=== PATIENT | female | born 1940 | race Caucasian/White ===

== ENCOUNTER 2017-10-21 14:05 | Inpatient (IN) | payer OTHER, MEDICARE ==
[2017-10-21] VITALS (8 sets, daily range): BP systolic 112–152; BP diastolic 66–96; PULSE 87–104; RESP 12–19; TEMP 97.7–98.2; O2SAT 90–98
[~2017-10-21] VITALS: Ht 152.4 cm; Wt 109.1 kg
[~2017-10-21 14:05] MED LIST: APIX2.5T PO; DILTCD180 PO; DOCU1CAP39 PO; DUONI NEB; FLUT50SP NASAL; FURO1TAB93 PO; KCL20 PO; LORTA5 PO; NEBUMIS6 INH; SENN187 PO; Z.0.OXYGEN INH
[2017-10-21] MEDS ORDERED: SODIUM CHLORIDE 0.9% FLUSH 10 ML FLUSH IVF PRN (14:30)
[2017-10-21] MEDS ORDERED: HYDROmorphone HCL PF 2 MG/ML VIAL IV PUSH ONE (14:30)
--- NOTE | 2017-10-21 14:34 | PD ---
HPI Chief Complaint: Fall Time Seen by Provider: 14:17 Travel History International Travel<30 days: No Contact w/Intl Traveler<30days: No Traveled to known affect area: No History of Present Illness HPI Patient is a 77-year-old female presents emergency department for evaluation of left hip pain and left hand pain after a trip and fall. Patient absolutely declines any syncopal event. She states she has had some trips and falls in the past. States the pain in her left hip is severe, she also states she has a little bit of left wrist pain and left hand pain because she fell on the left hand. Denies any head injury or neck injury. Denies any chest pain shortness of breath abdominal pain nausea vomiting. Symptoms started just prior to arrival, she came in by EMS in the scoop stretcher in position and comfort. Pain severe, left hip, context is fall, associated signs symptoms as above. PFSH Past Medical History Hx Anticoagulant Therapy: Yes Arthritis: Yes Asthma: Yes Atrial Fibrillation: Yes Blood Disorders: No Anxiety: No Depression: No Heart Rhythm Problems: Yes (AFIB) Cancer: No Cardiovascular Problems: Yes (ATRIAL FIB) High Cholesterol: No Chest Pain: No Congestive Heart Failure: Yes COPD: Yes Cerebrovascular Accident: Yes (TIA) Diminished Hearing: No Endocrine: No Gastrointestinal Disorders: Yes GERD: No Glaucoma: No Genitourinary: Yes Hepatitis: No Hiatal Hernia: No Hypertension: Yes Immune Disorder: No Kidney Stones: No Musculoskeletal: Yes Neurologic: Yes Psychiatric: No Reproductive: Yes (HYSTERECTOMY) Respiratory: Yes (COPD/CHF) Migraines: No Myocardial Infarction: No Renal Failure: No Seizures: No Sleep Apnea: Yes Ulcer: No Menopausal: Yes Past Surgical History Abdominal Surgery: Yes (APPENDECTOMY) AICD: No Appendectomy: Yes Arteriovenous Shunt: No Cardiac Surgery: No Cholecystectomy: No Ear Surgery: No Endocrine Surgery: No Eye Surgery: Yes (CATARACT LEFT EYE) Genitourinary Surgery: Yes (BLADDER DROP?) Gynecologic Surgery: Yes (HYSTERECTOMY, ) Hysterectomy: Yes Insulin Pump: No Joint Replacement: Yes (RIGHT KNEE) Neurologic Surgery: No Oral Surgery: No Pacemaker: No Thoracic Surgery: No Other Surgery: No Social History Alcohol Use: No Tobacco Use: No Substance Use: No Allergies-Medications (Allergen,Severity, Reaction): Coded Allergies: No Known Allergies (Verified , 05/22/15) Reported Meds & Prescriptions Reported Meds & Active Scripts Active Reported Diltiazem ER 24 HR 180 Mg Yomaira Unknown Dose PO DAILY Lisinopril 2.5 Mg Tab 2.5 Mg PO DAILY Eliquis (Apixaban) 5 Mg Tab 5 Mg PO BID Review of Systems Except as stated in HPI: all other systems reviewed are Neg Physical Exam Narrative GENERAL: Well-developed morbidly obese female appears somewhat uncomfortable peer SKIN: Focused skin assessment warm/dry. HEAD: Atraumatic. Normocephalic. EYES: Pupils equal and round. No scleral icterus. No injection or drainage. ENT: No nasal bleeding or discharge. Mucous membranes pink and moist. NECK: Trachea midline. No JVD. CARDIOVASCULAR: Regular rate and rhythm. No murmur appreciated. RESPIRATORY: No accessory muscle use. Clear to auscultation. Breath sounds equal bilaterally. GASTROINTESTINAL: Abdomen soft, non-tender, nondistended. Hepatic and splenic margins not palpable. MUSCULOSKELETAL: No obvious deformities. No clubbing. No cyanosis. No edema. Patient initially sitting in the left lateral position because of the position of comfort, she does have some pain to palpation the left hip, no midline CT or L-spine tenderness, there is no contusion on the forehead, no contusion on the back, patient very limited initial examination of the left hip but appears to be shortened. No tenderness at the knees ankles or feet. 2+ bilateral equal pulses are present in all 4 extremity's, motor and sensory present and equal bilaterally in all 4 extremities. Compartments are soft. The upper extremities the shoulders are nontender, elbows nontender, no tenderness in the wrist or hand. NEUROLOGICAL: Awake and alert. No obvious cranial nerve deficits. Motor grossly within normal limits. Normal speech. PSYCHIATRIC: Appropriate mood and affect; insight and judgment normal. Data Data Last Documented VS Vital Signs Date Time Temp Pulse Resp B/P (MAP) Pulse Ox O2 Delivery O2 Flow Rate FiO2 10/21/17 14:30 96 Nasal Cannula 2.00 10/21/17 14:30 97 10/21/17 14:17 98.2 19 152/71 (98) Orders Orders Electrocardiogram (10/21/17 14:17) Complete Blood Count With Diff (10/21/17 14:17) Comprehensive Metabolic Panel (10/21/17 14:17) Magnesium (Mg) (10/21/17 14:17) Prothrombin Time / Inr (Pt) (10/21/17 14:17) Act Partial Throm Time (Ptt) (10/21/17 14:17) Chest, Single Ap (10/21/17 14:17) Ecg Monitoring (10/21/17 14:17) Iv Access Insert/Monitor (10/21/17 14:17) Oximetry (10/21/17 14:17) Oxygen Administration (10/21/17 14:17) Sodium Chloride 0.9% Flush (Ns Flush) (10/21/17 14:30) Hydromorphone Pf Inj (Dilaudid Pf Inj) (10/21/17 14:30) Hand, Complete ([id number]) (10/21/17 ) Hip, Uni(Ap&Lat) W Ap Pelvis (10/21/17 ) Consult Orthopedic (10/21/17 ) Hydromorphone Pf Inj (Dilaudid Pf Inj) (10/21/17 16:15) (Hub Use Only)Inp Phy Cons/Ref (10/21/17 ) Traction (10/21/17 16:18) Type And Screen (10/21/17 16:20) Splinting (10/21/17 ) Urinary Catheter Management ELIZABETH.Q8H (10/21/17 16:25) (Hub Use Only)Inp Phy Cons/Ref (10/21/17 ) Admit To Inpatient (10/21/17 ) Vital Signs (Adult) Q4H (10/21/17 16:53) Activity Bed Rest (10/21/17 16:53) [employer] Associate / Telemetry .CONTINUOUS (10/21/17 16:53) Sodium Chloride 0.9% Flush (Ns Flush) (10/21/17 17:00) Sodium Chloride 0.9% Flush (Ns Flush) (10/21/17 21:00) Basic Metabolic Panel (Bmp) (10/22/17 06:00) Complete Blood Count With Diff (10/22/17 06:00) Case Management Consult (10/21/17 16:53) Naloxone Inj (Narcan Inj) (10/21/17 17:00) Inpatient Certification (10/21/17 ) Admit Order (Ed Use Only) (10/21/17 ) Wrist, Complete ([id number]) (10/21/17 ) Hydromorphone Pf Inj (Dilaudid Pf Inj) (10/21/17 17:00) Labs Laboratory Tests Test 10/21/17 14:50 White Blood Count 7.1 TH/MM3 Red Blood Count 4.67 MIL/MM3 Hemoglobin 13.8 GM/DL Hematocrit 41.3 % Mean Corpuscular Volume 88.5 FL Mean Corpuscular Hemoglobin 29.6 PG Mean Corpuscular Hemoglobin Concent 33.4 % Red Cell Distribution Width 13.3 % Platelet Count 191 TH/MM3 Mean Platelet Volume 8.2 FL Neutrophils (%) (Auto) 74.8 % Lymphocytes (%) (Auto) 16.1 % Monocytes (%) (Auto) 6.7 % Eosinophils (%) (Auto) 1.7 % Basophils (%) (Auto) 0.7 % Neutrophils # (Auto) 5.3 TH/MM3 Lymphocytes # (Auto) 1.1 TH/MM3 Monocytes # (Auto) 0.5 TH/MM3 Eosinophils # (Auto) 0.1 TH/MM3 Basophils # (Auto) 0.0 TH/MM3 CBC Comment DIFF FINAL Differential Comment Prothrombin Time 11.2 SEC Prothromb Time International Ratio 1.1 RATIO Activated Partial Thromboplast Time 25.4 SEC Blood Urea Nitrogen 16 MG/DL Creatinine 0.62 MG/DL Random Glucose 111 MG/DL Total Protein 7.0 GM/DL Albumin 3.2 GM/DL Calcium Level 8.7 MG/DL Magnesium Level 2.1 MG/DL Alkaline Phosphatase 133 U/L Aspartate Amino Transf (AST/SGOT) 18 U/L Alanine Aminotransferase (ALT/SGPT) 19 U/L Total Bilirubin 0.3 MG/DL Sodium Level 141 MEQ/L Potassium Level 4.1 MEQ/L Chloride Level 108 MEQ/L Carbon Dioxide Level 25.9 MEQ/L Anion Gap 7 MEQ/L Estimat Glomerular Filtration Rate 93 ML/MIN MDM Medical Decision Making Medical Screen Exam Complete: Yes Emergency Medical Condition: Yes Differential Diagnosis Hip fracture, hip dislocation, wrist fracture, trip fall. Narrative Course Patient room to the emergency department, received 8 mg of morphine prior to arrival in the ER, received 1 mg of Dilaudid on arrival. She was able to lie flat for imaging, I do not appreciate any injury to her head or to her neck, she does have a proximal femoral shaft fracture as well as a distal radius fracture. Was discussed briefly with Edison Molina's PA and will be n.p.o. after midnight for surgery tomorrow, during placement in Caal's traction she was given an additional milligram of Dilaudid, she tolerated transferred to a bed just fine, was placed in Caal's traction. With my assessment later the patient was found to be belly breathing and had had some desaturations, she was placed on nonrebreather and when Dr. Dawson saw her she was also bleeding of some nausea. She placed back in a nasal cannula was observed very closely. She had frequent reassessments by me, we consider Narcan for some time but every time the patient was alert and awake and she arouses very easily but desaturated. Finally after desaturating on a Ventimask the patient was given 0.4 mg of Narcan , she had excellent response to this and began satting 95-96 on her home nasal cannula. I have asked nursing to therefore confirm with the ER doctor who is replaced me in 1900 prior to transporting this patient upstairs to confirm she can go up stairs safely. Diagnosis Primary Impression: Femur fracture, left Additional Impressions: Distal radius fracture, left Fall Admitting Information Admitting Physician Requests: Admit Condition: Stable Darryl Zuniga MD Oct 21, 2017 14:34
[2017-10-21 15:22] LABS: AUTOMATED NEUTROPHIL # 5.3 TH/MM3 (1.8-7.7); BASOPHIL % 0.7 % (0.0-2.0); EOSINOPHIL # 0.1 TH/MM3 (0-0.4); EOSINOPHIL % 1.7 % (0.0-4.0); HEMATOCRIT 41.3 % (35.0-46.0); HEMOGLOBIN 13.8 GM/DL (11.6-15.3); LYMPH % 16.1 % (9.0-44.0); LYMPHOCYTE # 1.1 TH/MM3 (1.0-4.8); MEAN CELL VOLUME 88.5 FL (80.0-100.0); MEAN CORPUSCULAR HEMOGLOBIN 29.6 PG (27.0-34.0); MEAN CORPUSCULAR HGB CONC 33.4 % (32.0-36.0); MEAN PLATELET VOLUME 8.2 FL (7.0-11.0); MONO % 6.7 % (0.0-8.0); MONOCYTE # 0.5 TH/MM3 (0-0.9); NEUT % 74.8 % (16.0-70.0); PLATELET COUNT 191 TH/MM3 (150-450); RED BLOOD COUNT 4.67 MIL/MM3 (4.00-5.30); RED CELL DISTRIBUTION WIDTH 13.3 % (11.6-17.2); WHITE BLOOD COUNT 7.1 TH/MM3 (4.0-11.0)
[2017-10-21 15:26] LABS: INTERNATIONAL NORMALIZED RATIO 1.1 RATIO; PROTHROMBIN TIME - PATIENT 11.2 SEC (9.8-11.6)
[2017-10-21 15:37] LABS: ALKALINE PHOSPHATASE 133 U/L (45-117); TOTAL BILIRUBIN ADULT 0.3 MG/DL (0.2-1.0)
[2017-10-21 15:53] LABS: ALBUMIN 3.2 GM/DL (3.4-5.0); ALT (GPT) 19 U/L (10-53); AST (GOT) 18 U/L (15-37); BICARBONATE 25.9 MEQ/L (21.0-32.0); BLOOD UREA NITROGEN 16 MG/DL (7-18); CALCIUM 8.7 MG/DL (8.5-10.1); CHLORIDE 108 MEQ/L (98-107); CREATININE 0.62 MG/DL (0.50-1.00); GLOMERULAR FILTRATION RATE 93 ML/MIN (>89); GLUCOSE,RANDOM 111 MG/DL (74-106); MAGNESIUM 2.1 MG/DL (1.5-2.5); SODIUM (NA) 141 MEQ/L (136-145)
--- NOTE | 2017-10-21 16:13 | RADRPT ---
EXAM DATE/TIME: 10/21/2017 15:40 [facility] COMPARISON: No previous studies available for comparison. INDICATIONS : Fell outside at home today. MEDICAL HISTORY : Hypertension. Chronic obstructive pulmonary disease. SURGICAL HISTORY : None. ENCOUNTER: Initial ACUITY: 1 day PAIN SCORE: 6/10 LOCATION: Left hand FINDINGS: Three view examination of the left hand demonstrates a nondisplaced fracture through the distal left radius as well as an avulsion fracture of the ulnar styloid. The phalanges, metacarpals and carpal adolfo deanna appear in tack without evidence of acute fracture. Mild arthritic changes seen in the interphalan geal joints. CONCLUSION: 1. Nondisplaced fracture of the distal left radius. 2. Avulsion fracture of the left ulnar styloid. 3. Intact bony structures of the hand. Marco Antonio Whaley MD on October 21, 2017 at 16:08 Board Certified Radiologist. This report was verified electronically.
[2017-10-21] MEDS ORDERED: HYDROmorphone HCL PF 1 MG/ML VIAL IV PUSH ONE (16:15)
--- NOTE | 2017-10-21 16:19 | RADRPT ---
EXAM DATE/TIME: 10/21/2017 15:35 [facility] COMPARISON: CHEST SINGLE AP, May 25, 2015, 4:02. INDICATIONS : Fell in her yard today. MEDICAL HISTORY : Hypertension. Chronic obstructive pulmonary disease. SURGICAL HISTORY : None. ENCOUNTER: Initial ACUITY: 1 day PAIN SCORE: Non-responsive. LOCATION: Bilateral chest FINDINGS: Heart size enlarged. Minimal linear atelectasis or scarring in the lungs. No effusion. No pneumothora x. No acute bony abnormalities. CONCLUSION: 1. Heart size enlarged. Minimal linear atelectasis or scarring in the lungs. Sergio Monsivais MD on October 21, 2017 at 16:15 Board Certified Radiologist. This report was verified electronically.
--- NOTE | 2017-10-21 16:31 | RADRPT ---
EXAM DATE/TIME: 10/21/2017 15:35 [facility] COMPARISON: No previous studies available for comparison. INDICATIONS : Fell outside at her home today. MEDICAL HISTORY : Hypertension. Chronic obstructive pulmonary disease. SURGICAL HISTORY : None. ENCOUNTER: Initial ACUITY: 1 day PAIN SCORE: 10/10 LOCATION: Left hip and pelvis FINDINGS: 4 views of the pelvis and left hip reveal an acute intertrochanteric fracture on the left. This is co mminuted. Femoral head remains in contact with the acetabulum. The remaining pelvis appears intact. S oft tissues are unremarkable. CONCLUSION: Comminuted left intertrochanteric fracture. Nas Jeong Jr., MD on October 21, 2017 at 16:16 Board Certified Radiologist. This report was verified electronically.
[2017-10-21] MEDS ORDERED: HYDROmorphone HCL PF 2 MG/ML VIAL IV PUSH PRN (17:00)
[2017-10-21] MEDS ORDERED: SODIUM CHLORIDE 0.9% FLUSH 10 ML FLUSH IV FLUSH PRN (17:00)
[2017-10-21] MEDS ORDERED: NALOXONE HCL 0.4 MG/ML AMP IV PUSH PRN (17:00)
--- NOTE | 2017-10-21 17:32 | RADRPT ---
EXAM DATE/TIME: 10/21/2017 17:15 [facility] COMPARISON: HAND LEFT COMPLETE ([id number]), October 21, 2017, 15:40. INDICATIONS : Fall, on left arm, post reduction. MEDICAL HISTORY : None. SURGICAL HISTORY : None. ENCOUNTER: Initial ACUITY: 1 day PAIN SCORE: 4/10 LOCATION: Left wrist FINDINGS: Bony detail is obscured by cast material. A distal radial fracture appears to be adequately reduced. Minimally displaced ulnar styloid fracture is noted. There are moderate arthritic changes in the wris t and visualized hand. CONCLUSION: Satisfactory immobilized appearance of wrist fracture. Adriel Altamirano MD on October 21, 2017 at 17:28 Board Certified Radiologist. This report was verified electronically.
--- NOTE | 2017-10-21 17:44 | HHI.HP ---
[facility] Service [facility] Primary Care Physician Thomas Ramirez MD Admission Diagnosis Femur fracture, Distal radius fracture. Diagnoses: Travel History International Travel<30 Days: No Contact w/Intl Traveler <30 Da: No Traveled to Known Affected Are: No History of Present Illness History from patient, ER physician communication, and review of medical records. Patient is somewhat of a poor historian because she is quite sleepy at the time of exam due to pain medications. However, when she wakes up though, she is able to give history. She Telling me to leave Her Alone Because She Was Feeling Nauseous Just Wanted to Go to Sleep. Patient Reports That She Had a Fall She Was Walking Out Of Her House to Her Car. She denies tripping on anything. She reports she just simply lost balance and fell. She denies hitting her head. She denies syncopal episodes. Per ER report, patient was given a total of morphine 8 mg by EMS. She also received Dilaudid 2 mg total in ER prior to my arrival. She then desaturated down to 84% on room air with drowsiness and sleepiness. However on 3 L nasal cannula, patient is saturating around 90%. She reports that she is supposed to be on home oxygen. But she does not take it regularly. Because of the pain medications, she was also quite nauseous at the time of my exam. She therefore was trying to pull her oxygen off in fear of nausea and vomiting. Review of Systems ROS Limitations: Poor Historian (poor historian. She rather sleeps because of the medications.) Except as stated in HPI: all other systems reviewed are Neg Past Family Social History Past Medical History Hypertension Obesity COPD Atrial fibrillation Chronic anticoagulation on Eliquis History of congestive heart failure. EF of 45% by echo in 2015. Past Surgical History Appendectomy Cataract Surgery Hysterectomy Right Knee Replacement Tonsillectomy Allergies: Coded Allergies: No Known Allergies (Verified , 05/22/15) Family History per EMR: father and brother with heart disease, myocardial infarction Social History per emr Patient quit smoking 20 years ago, prior to that she smoked up to 4 pack of cigarettes a day since she was 8 years old. Patient denies any alcohol or illicit drugs Physical Exam Vital Signs Vital Signs Date Time Temp Pulse Resp B/P (MAP) Pulse Ox O2 Delivery O2 Flow Rate FiO2 10/21/17 14:30 96 Nasal Cannula 2.00 10/21/17 14:30 98 Nasal Cannula 2.00 10/21/17 14:17 98.2 104 19 152/71 (98) 96 Physical Exam GENERAL: This is a well-nourished, well-developed patient, in no apparent distress. SKIN: No rashes, ecchymoses or lesions. Cool and dry. HEAD: Atraumatic. Normocephalic. No temporal or scalp tenderness. EYES: No scleral icterus. No injection or drainage. ENT: Nose without bleeding, purulent drainage or septal hematoma.. Airway patent. NECK: Trachea midline. No JVD or lymphadenopathy. Supple, nontender, no meningeal signs. CARDIOVASCULAR: Regular rate and rhythm without murmurs, gallops, or rubs. RESPIRATORY: Clear to auscultation. Breath sounds equal bilaterally. No wheezes , rales, or rhonchi. GASTROINTESTINAL: Abdomen soft, non-tender, nondistended. No guarding Extremity: No cough asymmetry or edema. Left upper extremity in splint. Left lower extremity and traction. NEUROLOGICAL: Arousable on verbal command. However easily falls straight back to sleep. Alert while she is awake and able to answers questions but go straight back to sleep. Motor and sensory grossly within normal limit. Normal speech. Laboratory Laboratory Tests Test 10/21/17 14:50 White Blood Count 7.1 Red Blood Count 4.67 Hemoglobin 13.8 Hematocrit 41.3 Mean Corpuscular Volume 88.5 Mean Corpuscular Hemoglobin 29.6 Mean Corpuscular Hemoglobin Concent 33.4 Red Cell Distribution Width 13.3 Platelet Count 191 Mean Platelet Volume 8.2 Neutrophils (%) (Auto) 74.8 Lymphocytes (%) (Auto) 16.1 Monocytes (%) (Auto) 6.7 Eosinophils (%) (Auto) 1.7 Basophils (%) (Auto) 0.7 Neutrophils # (Auto) 5.3 Lymphocytes # (Auto) 1.1 Monocytes # (Auto) 0.5 Eosinophils # (Auto) 0.1 Basophils # (Auto) 0.0 CBC Comment DIFF FINAL Differential Comment Prothrombin Time 11.2 Prothromb Time International Ratio 1.1 Activated Partial Thromboplast Time 25.4 Blood Urea Nitrogen 16 Creatinine 0.62 Random Glucose 111 Total Protein 7.0 Albumin 3.2 Calcium Level 8.7 Magnesium Level 2.1 Alkaline Phosphatase 133 Aspartate Amino Transf (AST/SGOT) 18 Alanine Aminotransferase (ALT/SGPT) 19 Total Bilirubin 0.3 Sodium Level 141 Potassium Level 4.1 Chloride Level 108 Carbon Dioxide Level 25.9 Anion Gap 7 Estimat Glomerular Filtration Rate 93 Result Diagram: 10/21/17 1450 10/21/17 1450 Imaging Last 48 hours Impressions Chest X-Ray 10/21/17 1417 Signed Impressions: Service Date/Time: Saturday, October 21, 2017 15:35 - CONCLUSION: 1. Heart size enlarged. Minimal linear atelectasis or scarring in the lungs. Sergio Monsivais MD Wrist X-Ray 10/21/17 0000 Signed Impressions: Service Date/Time: Saturday, October 21, 2017 17:15 - CONCLUSION: Satisfactory immobilized appearance of wrist fracture. Adriel Altamirano MD Hip and Pelvis X-Ray 10/21/17 0000 Signed Impressions: Service Date/Time: Saturday, October 21, 2017 15:35 - CONCLUSION: Comminuted left intertrochanteric fracture. Nas Jeong Jr., MD Hand X-Ray 10/21/17 0000 Signed Impressions: Service Date/Time: Saturday, October 21, 2017 15:40 - CONCLUSION: 1. Nondisplaced fracture of the distal left radius. 2. Avulsion fracture of the left ulnar styloid. 3. Intact bony structures of the hand. Marco Antonio Whaley MD Caprini VTE Risk Assessment Caprini VTE Risk Assessment: Mod/High Risk (score >= 2) Caprini Risk Assessment Model Point Value = 1 Point Value = 2 Point Value = 3 Point Value = 5 Age 41-60 Minor surgery BMI > 25 kg/m2 Swollen legs Varicose veins or History of unexplained or recurrent spontaneous Oral contraceptives or hormone replacement Sepsis (< 1 month) Serious lung disease, including pneumonia (< 1 month) Abnormal pulmonary function Acute myocardial infarction Congestive heart failure (< 1 month) History of inflammatory bowel disease Medical patient at bed rest Age 61-74 Arthroscopic surgery Major open surgery (> 45 min) Laparoscopic surgery (> 45 min) Malignancy Confined to bed (> 72 hours) Immobilizing plaster cast Central venous access Age >= 75 History of VTE Family history of VTE Factor V Leiden Prothrombin [id number] Lupus anticoagulant Anticardiolipin antibodies Elevated serum homocysteine Heparin-induced thrombocytopenia Other congenital or acquired thrombophilia Stroke (< 1 month) Elective arthroplasty Hip, pelvis, or leg fracture Acute spinal cord injury (< 1 month) Prophylaxis Regimen Total Risk Factor Score Risk Level Prophylaxis Regimen 0-1 Low Early ambulation 2 Moderate Order ONE of the following: *Sequential Compression Device (SCD) *Heparin 5000 units SQ BID 3-4 Higher Order ONE of the following medications: *Heparin 5000 units SQ TID *Enoxaparin/Lovenox 40 mg SQ daily (WT < 150 kg, CrCl > 30 mL/min) *Enoxaparin/Lovenox 30 mg SQ daily (WT < 150 kg, CrCl > 10-29 mL/min) *Enoxaparin/Lovenox 30 mg SQ BID (WT < 150 kg, CrCl > 30 mL/min) AND/OR *Sequential Compression Device (SCD) 5 or more Highest Order ONE of the following medications: *Heparin 5000 units SQ TID (Preferred with Epidurals) *Enoxaparin/Lovenox 40 mg SQ daily (WT < 150 kg, CrCl > 30 mL/min) *Enoxaparin/Lovenox 30 mg SQ daily (WT < 150 kg, CrCl > 10-29 mL/min) *Enoxaparin/Lovenox 30 mg SQ BID (WT < 150 kg, CrCl > 30 mL/min) AND *Sequential Compression Device (SCD) Assessment and Plan Assessment and Plan Impression: Status post fall Left intraventricular fracture Left distal radius fracture Chronic anticoagulation on Eliquis Hypoxia in ER with nausea- secondary to pain meds. Hypertension Obesity COPD Atrial fibrillation Chronic anticoagulation on Eliquis History of congestive heart failure. EF of 45% by echo in 2015. Plan: Nothing by mouth. Orthopedics was consulted. Pain control with Dilaudid 0.2 mg IV every 4 hours when necessary. Watch for oversedation. Oxygen 3 L nasal cannula or Ventimask 35%. Titrate FiO2 down to keep O2 sat 90% only. Watch for CO2 retention. At present, although patient is quite sleepy, when she wakes up she is oriented and able to give history. She does not need Narcan. However if she does worsen , we'll consider giving her Narcan to avoid hypoxia. Patient's condition was discussed with patient's ER nurse and respiratory therapist. Hold Eliquis. If patient's surgery is delayed, to start on heparin drip by tomorrow afternoon. Nebs when necessary. Verify home meds. DVT prophylaxis. To start Eliquis postoperatively. Discussed Condition With Patient, ER physician, patient's nurse Physician Certification 2 Midnight Certification Type: Admission for Inpatient Services Order for Inpatient Services The services are ordered in accordance with Medicare regulations or non- Medicare payer requirements, as applicable. In the case of services not specified as inpatient-only, they are appropriately provided as inpatient services in accordance with the 2-midnight benchmark. Estimated LOS (days): 3 days is the estimated time the patient will need to remain in the hospital, assuming treatment plan goals are met and no additional complications. Post-Hospital Plan: Not yet determined Dilan Collier MD Oct 21, 2017 17:44
[2017-10-21] MEDS: ONDANSETRON HCL 4 MG/2 ML VIAL IV PUSH PRN (18:03)
[2017-10-21] MEDS ORDERED: APIX5TAB PO (19:09)
[2017-10-21] MEDS ORDERED: LISI2.5T3 PO (19:09)
[2017-10-21] MEDS ORDERED: DILT0.05 PO (19:09)
[2017-10-21] MEDS ORDERED: DILT30TA PO (19:09)
[2017-10-21] MEDS: SODIUM CHLORIDE 0.9% FLUSH 10 ML FLUSH IV FLUSH SCH (21:00)
[2017-10-21] MEDS ORDERED: PILL SPLITTER OTHER PRN (21:30)
[2017-10-21] MEDS ORDERED: RESP: ALBUTEROL 2.5 MG/IPRATROPIUM 0.5 MG NEB (PRN) NEB (21:30)
[2017-10-21] MEDS ORDERED: LACTATED RINGER'S 1000 ML IV PRN (22:00)
[2017-10-21] MEDS ORDERED: POVIDONE IODINE 5% (ANTISEPSIS KIT) 4 APPLICATIONS EACH NARE PRN (22:00)
[2017-10-21] MEDS ORDERED: SODIUM CHLORID 0.9% 500 ML IV PRN (22:00)
[2017-10-21] MEDS ORDERED: CHLORHEXIDINE GLUCONATE 2 % 1 PACK (2 CLOTHS) TOPICAL PRN (22:00)
[2017-10-22] VITALS (8 sets, daily range): BP systolic 93–159; BP diastolic 51–86; PULSE 87–129; RESP 15–19; TEMP 97.3–100; O2SAT 93–98
[2017-10-22] MEDS: HYDROmorphone HCL PF 2 MG/ML VIAL IV PUSH PRN ×4 (00:14→21:55)
[2017-10-22 06:46] LABS: BICARBONATE 27.2 MEQ/L (21.0-32.0); CALCIUM 8.6 MG/DL (8.5-10.1); CREATININE 0.58 MG/DL (0.50-1.00)
[2017-10-22] MEDS ORDERED: HYDR-3583 PO (06:49)
[2017-10-22] MEDS ORDERED: VITA2000 PO (06:49)
[2017-10-22] MEDS ORDERED: WALKER/ADULT/FO1 MIS (06:49)
[2017-10-22] MEDS ORDERED: WHEEMIS3 (06:49)
[2017-10-22] MEDS ORDERED: CALCTAB19 PO (06:49)
[2017-10-22] MEDS ORDERED: VITA500012 PO (06:49)
[2017-10-22 06:50] LABS: AUTOMATED NEUTROPHIL # 8.7 TH/MM3 (1.8-7.7); BASOPHIL % 0.3 % (0.0-2.0); EOSINOPHIL # 0.1 TH/MM3 (0-0.4); EOSINOPHIL % 1.1 % (0.0-4.0); HEMATOCRIT 36.4 % (35.0-46.0); HEMOGLOBIN 12.1 GM/DL (11.6-15.3); LYMPH % 12.8 % (9.0-44.0); LYMPHOCYTE # 1.5 TH/MM3 (1.0-4.8); MEAN CELL VOLUME 89.2 FL (80.0-100.0); MEAN CORPUSCULAR HEMOGLOBIN 29.6 PG (27.0-34.0); MEAN CORPUSCULAR HGB CONC 33.2 % (32.0-36.0); MONO % 9.8 % (0.0-8.0); MONOCYTE # 1.1 TH/MM3 (0-0.9); PLATELET COUNT 169 TH/MM3 (150-450); RED BLOOD COUNT 4.08 MIL/MM3 (4.00-5.30); RED CELL DISTRIBUTION WIDTH 13.2 % (11.6-17.2); WHITE BLOOD COUNT 11.4 TH/MM3 (4.0-11.0)
--- NOTE | 2017-10-22 07:26 | MB ---
cc: Clayton Molina MD DATE: 10/22/2017 CHIEF COMPLAINT: Left distal radius fracture, left hip intertrochanteric fracture. CONSULTING PHYSICIAN: Dr. Henderson. HISTORY OF PRESENT ILLNESS: Dora is a 77-year-old female who had a fall. She states that she was walking out of her house to go to her car. She lost her balance and fell. She denies dizziness, syncope, or loss of consciousness. She tried to catch herself, but landed on her left side. She had left wrist pain and left hip pain. She presented to the emergency room via EMS. She presented to the emergency room where x-rays revealed a minimally displaced left distal radius fracture, as well as a displaced left proximal femur fracture. She is currently awake and alert on the orthopedic floor. Pain is worse with movement and is improved with rest. PAST MEDICAL HISTORY: Illnesses: Hypertension, obesity, COPD, atrial fibrillation, CHF. PAST SURGICAL HISTORY: Appendectomy, cataract surgery, hysterectomy, knee replacement, tonsillectomy. ALLERGIES: NONE KNOWN. SOCIAL HISTORY: The patient quit smoking 20 years ago. She denies alcohol or drug use. FAMILY HISTORY: Positive for heart disease in her father and brother. REVIEW OF SYSTEMS: The patient denies headache, visual changes, neck pain, chest pain, shortness of breath, abdominal pain, nausea, vomiting, recent weight loss, fevers or chills or numbness or tingling of extremities. She complains of left wrist pain and left hip pain. The pain is worse with movement. LABORATORY DATA: White blood cell count is 7.1, hematocrit is 41.3, and platelet count is 191. INR is 1.1. BUN is 18 and creatinine of 0.58. PHYSICAL EXAM: GENERAL: The patient is a pleasant 77-year-old female. She is awake and alert. She is alert and oriented x 3. She appears well-developed and well-nourished. She is moderately overweight. VITAL SIGNS: Temperature 97.7, pulse 87, respirations 18, blood pressure 159/86, O2 saturations 98% on 3 liters nasal cannula. HEENT: Head: The patient is normocephalic. Pupils are equal. NECK: Soft, nontender. The trachea is in the midline. ABDOMEN: Soft, nontender, nondistended. EXTREMITIES: Examination of the left arm reveals no tenderness around her shoulder or elbow. She is tender to palpation of her wrist. She has good cap refill in her fingers. Skin is intact. Sensation is intact in all fingers. Examination of the right arm reveals no pain with shoulder, elbow or wrist motion. She has intact sensation in all fingers. She has good cap refill in all fingers. Skin is intact. Examination of the right leg reveals no pain with hip, knee or ankle motion. Skin is intact. Dorsalis pedis pulses palpable. Sensation is intact. Examination of the left leg reveals pain with any hip motion. She has no tenderness around her knee, tibia or ankle. Skin is intact. Dorsalis pedis pulses palpable. IMAGING: X-rays of the left hip were reviewed. X-rays reveal a left hip intertrochanteric fracture. X-rays of the left wrist were reviewed. X-rays reveal a minimally displaced left distal radius fracture. IMPRESSION: 1. Minimally displaced left distal radius fracture. 2. Displaced left hip intertrochanteric fracture. 3. Atrial fibrillation. 4. Chronic obstructive pulmonary disease. 5. Hypertension. 6. Obesity. PLAN: Treatment options were discussed with the patient. At this point, I would recommend nonsurgical treatment of her left wrist. I would recommend surgical treatment of her left femur and hip fracture. I would recommend reduction and intramedullary nail fixation of the left femur. The risks of surgery include bleeding, infection, injuries to arteries, nerves or blood vessels, nonunion, malunion, painful hardware, bursitis, as well as medical complications including blood clot, stroke, heart attack and . All questions were answered. I will plan on surgery today. A mid-level provider in my office, nurse practitioner or PA, may see this patient on a follow-up basis and continue to implement the objective of this plan including: Starting or adjusting medications, injections of muscle, tendon, bursa or joints, cast application, orthotic or brace application, physical therapy, further radiographic studies including x-ray, MRI, CT, ultrasounds or bone scan, vascular studies, neurologic studies, or other specialist consultations, and proceeding with surgical management as appropriate. MD MARJAN Valero/DANIEL , 06:51 AM , 07:25 AM
[2017-10-22] MEDS ORDERED: BUPIVACAINE/EPINEPHRINE 0.25% PF 10 ML VIAL ONE (08:21)
[2017-10-22] MEDS ORDERED: GENTAMICIN SULFATE 80 MG/2 ML VIAL ONE (08:22)
[2017-10-22] MEDS ORDERED: ceFAZolin INJ 1,000 MG VIAL ONE (08:36)
[2017-10-22] MEDS ORDERED: VANCOMYCIN HCL 1000 MG VIAL ONE (08:36)
[2017-10-22] MEDS: LISINOPRIL 5 MG TAB PO SCH (09:00)
[2017-10-22] MEDS: SODIUM CHLORIDE 0.9% FLUSH 10 ML FLUSH IV FLUSH SCH ×2 (09:00→21:55)
[2017-10-22] MEDS: DILTIAZEM-CD 180 MG CAP ER PO SCH (09:00)
[2017-10-22] MEDS ORDERED: ACETAMINOPHEN 1000 MG/100 ML 100 ML IV ONE (09:16)
--- NOTE | 2017-10-22 09:44 | PD.OP ---
cc: Clayton Larsen MD Operative Report Date of Surgery: Oct 22, 2017 Preoperative Diagnosis: Displaced left hip intertrochanteric fracture, minimally displaced left distal radius fracture Postoperative Diagnosis: Procedure: Left hip reduction and intramedullary nail fixation Anesthesia: Gen. Surgeon: Clayton Larsen Enrichment Specialist(s): BULMARO Patrick PA-C The surgical procedure was assisted by my physician care team assistant. My P.A. presence was necessary throughout this case for the manipulation and positioning of the surgical extremity. My P.A. was assisting me throughout the duration of this procedure. The skill set of a physician care team assistant was medically necessary to complete this procedure. During the surgical case the operating room surgical technician was working at the back table and the physician care team assistant was directly assisting me. Operation and Findings: Implants used: Biomet [11]mm x [360]mm troch nail Plan of activity: 50% weightbearing left leg, may use platform walker left arm Patient was seen and evaluated preoperatively. The patient has significant hip pain from proximal femur fracture. The risk and benefits of surgery were discussed in depth with the patient to include bleeding, infection, nonunion, malunion, need for hip replacement, painful hardware, as well as medical competitions including blood clots, stroke, heart attack, and . Informed consent was obtained. Operative site was marked. Patient was brought to the operating room and placed on fracture table. IV sedation was administered by anesthesiologist. Timeout procedure was performed. Left Hip and leg were prepped with alcohol followed by DuraPrep and draped in the usual sterile fashion. IV antibiotics were given prior to incision. Procedure began with reduction of fracture. Traction was applied. The leg was manipulated to achieve reduction. Excellent reduction was achieved. Fluoroscopy was used to confirm reduction. A three inch incision was made proximal to the trochanter. Subcutaneous tissue was dissected bluntly. Guidepin was placed at the tip of the trochanter and advanced into the femoral canal. Fluoroscopy confirmed appropriate guidepin placement. A opening reamer was placed over the guidepin. A long ball tipped guide pin was now placed down the femoral canal into the center of the distal femur. The nail length was now measured. Fluoroscopy confirmed appropriate guidepin placement. Flexible reamers were now passed over the guidepin to ream the intramedullary canal. The nail was opened and attached to the insertion handle. Nail was now placed over the guidepin into the femoral canal. Fluoroscopy confirmed appropriate nail placement. A second incision was made over the lateral thigh. Cannulas were placed through the insertion handle down to the femur. Guidepin was now placed through the femoral nail into the center of the femoral head. Fluoroscopy confirmed appropriate guidepin placement. Screw length was measured. Cannulated drill was placed over the guidepin. Appropriate length lag screw was now placed. Traction was released and compression was applied. The set screw was now tightened in dynamic mode. Next, using perfect nightmute technique two distal interlocking screws were placed. Screw holes were predrilled and screw lengths were measured. Final fluoroscopy revealed well aligned fracture with well-placed hardware. Incision was closed with 3-0 Vicryl and sean. Sterile dressings were applied. Patient was awakened and transferred to recovery room. Clayton Larsen MD Oct 22, 2017 09:44
[2017-10-22] MEDS ORDERED: diphenhydrAMINE HCL 25 MG CAP PO PRN (09:45)
[2017-10-22] MEDS ORDERED: *RESP: ALBUTEROL 2.5 MG/3 ML NEB (PRN) PERIprocedural Use ONLY NEB ONE (10:11)
--- NOTE | 2017-10-22 10:20 | PD.ORT.PN ---
Subjective Subjective Remarks Transferred in stable condition PACU Objective Vitals Vital Signs Date Time Temp Pulse Resp B/P (MAP) Pulse Ox O2 Delivery O2 Flow Rate FiO2 10/22/17 07:19 98.7 94 17 121/62 (81) 94 10/22/17 04:35 98.6 94 18 158/86 (110) 93 10/22/17 00:33 98 Nasal Cannula 3.00 10/22/17 00:15 97.7 87 18 159/86 (110) 98 10/21/17 21:25 97.7 87 17 129/96 (107) 96 10/21/17 21:19 10/21/17 20:53 94 16 148/80 (102) 94 Nasal Cannula 3.00 10/21/17 19:03 102 14 144/67 (92) 98 Nasal Cannula 3.00 10/21/17 18:13 90 Venturi Mask 6.00 40 10/21/17 18:10 99 12 91 Venturi Mask 10/21/17 17:48 97 17 112/66 (81) 90 Non-Rebreather 10.00 10/21/17 14:30 96 Nasal Cannula 2.00 10/21/17 14:30 97 96 Room Air 10/21/17 14:30 98 Nasal Cannula 2.00 10/21/17 14:17 98.2 104 19 152/71 (98) 96 I/O 10/21/17 10/21/17 10/21/17 10/22/17 10/22/17 10/22/17 07:00 15:00 23:00 07:00 15:00 23:00 Intake Total 0 ml Output Total 300 ml Balance -300 ml Intake Oral 0 ml Output Urine Total 300 ml # Bowel Movements 0 Result Diagram: 10/22/17 0600 10/22/17 0600 Other Results Laboratory Tests Test 10/21/17 14:50 Prothromb Time International Ratio 1.1 RATIO Prothrombin Time 11.2 SEC (9.8-11.6) Imaging Last 24 hours Impressions Chest X-Ray 10/21/17 1417 Signed Impressions: Service Date/Time: Saturday, October 21, 2017 15:35 - CONCLUSION: 1. Heart size enlarged. Minimal linear atelectasis or scarring in the lungs. Sergio Monsivais MD Objective Remarks Left upper extremity: No pain with shoulder motion. Sugar tong splint place. Intact sensation distally with movement of fingers. Good capillary refills Left lower extremity: Clean dry dressings intact. Distally intact sensation with good capillary refills and distal pulses Assessment & Plan Assessment and Plan Left subtrochanteric femur fracture status post IM nail POD 0 Physical therapy 50% weightbearing left lower extremity Begin daily dressing changes POD 2 unless dressings are saturated and may begin sooner. Xeroform Lovenox Incentive spirometry Minimally displaced left distal radius fracture Maintain splint Nonweightbearing to left wrist. May use a platform walker for ambulation Case management for rehabilitation placement Appointment in 2 weeks for follow-up x-rays and examination with Dr. Larsen or Alex Mancilla Jr. Oct 22, 2017 10:20
[2017-10-22] MEDS ORDERED: ERGOCALCIFEROL (VIT D2) 50,000 UNIT CAP PO ONE (11:00)
[2017-10-22] MEDS ORDERED: LIDOCAINE HCL 1% PF 5 ML SYRINGE OTHER ONE (12:00)
[2017-10-22] MEDS ORDERED: KETOROLAC TROMETHAMINE 30 MG/ML (IVP) VIAL IV PUSH ONE (12:00)
[2017-10-22] MEDS ORDERED: PHENYLEPH/NS 1000 MCG/10 ML SYR IV ONE (12:00)
[2017-10-22] MEDS ORDERED: ONDANSETRON HCL 4 MG/2 ML VIAL IV ONE (12:00)
[2017-10-22] MEDS ORDERED: ePHEDrine/NS 25 MG/5 ML SYRINGE IV ONE (12:00)
[2017-10-22] MEDS ORDERED: DO NOT ADM ANY ANTICOAGULANT DRUGS PRN (12:00)
[2017-10-22] MEDS ORDERED: PROPOFOL 200 MG/20 ML AMP IV ONE (12:00)
[2017-10-22] MEDS ORDERED: ROCURONIUM INJ 50 MG/5 ML SYRINGE IV PUSH ONE (12:00)
[2017-10-22] MEDS ORDERED: GLYCOPYRROLATE 1 MG/5 ML SYRINGE IV PUSH ONE (12:00)
[2017-10-22] MEDS ORDERED: NEOSTIGMINE 5 MG/5 ML SYRINGE IV PUSH ONE (12:00)
--- NOTE | 2017-10-22 13:04 | RADRPT ---
EXAM DATE/TIME: 10/22/2017 09:33 [facility] COMPARISON: No previous studies available for comparison. INDICATIONS : Left hip troch nail. MEDICAL HISTORY : None. SURGICAL HISTORY : None. ENCOUNTER: Initial ACUITY: 1 day PAIN SCORE: Non-responsive. LOCATION: Left hip FINDINGS: There is post placement of intramedullary lindsay. There is good position and alignment on this postopera tive study. Hardware is grossly intact. CONCLUSION: Good position and alignment on this postoperative study.. Galo Nassar MD on October 22, 2017 at 13:02 Board Certified Radiologist. This report was verified electronically.
--- NOTE | 2017-10-22 14:03 | HHI.PR ---
Subjective Remarks Complains of some pain at this time. RN came into room w me and per RN has been asleep and now waking up. Pt states she is "starving" and asks for lunch. No CP/SOB Objective Vitals Vital Signs Date Time Temp Pulse Resp B/P (MAP) Pulse Ox O2 Delivery O2 Flow Rate FiO2 10/22/17 12:00 97.3 91 18 93/55 (68) 94 10/22/17 10:45 97 18 105/57 (73) 92 Nasal Cannula 5 10/22/17 10:30 98 18 119/59 (79) 90 Nasal Cannula 5 10/22/17 10:15 94 18 105/66 (79) 87 Nasal Cannula 5 10/22/17 10:07 98.2 92 18 94/51 (65) 83 Nasal Cannula 5 10/22/17 07:19 98.7 94 17 121/62 (81) 94 10/22/17 04:35 98.6 94 18 158/86 (110) 93 10/22/17 00:33 98 Nasal Cannula 3.00 10/22/17 00:15 97.7 87 18 159/86 (110) 98 10/21/17 21:25 97.7 87 17 129/96 (107) 96 10/21/17 21:19 10/21/17 20:53 94 16 148/80 (102) 94 Nasal Cannula 3.00 10/21/17 19:03 102 14 144/67 (92) 98 Nasal Cannula 3.00 10/21/17 18:13 90 Venturi Mask 6.00 40 10/21/17 18:10 99 12 91 Venturi Mask 10/21/17 17:48 97 17 112/66 (81) 90 Non-Rebreather 10.00 10/21/17 14:30 96 Nasal Cannula 2.00 10/21/17 14:30 97 96 Room Air 10/21/17 14:30 98 Nasal Cannula 2.00 10/21/17 14:17 98.2 104 19 152/71 (98) 96 I/O 10/21/17 10/21/17 10/21/17 10/22/17 10/22/17 10/22/17 07:00 15:00 23:00 07:00 15:00 23:00 Intake Total 0 ml 800 ml Output Total 300 ml 200 ml Balance -300 ml 600 ml Intake Oral 0 ml Other 800 ml Output Urine Total 300 ml Estimated Blood Loss 200 ml # Bowel Movements 0 Result Diagram: 10/22/17 0600 10/22/17 0600 Imaging Last Impressions Hip X-Ray 10/22/17 0000 Signed Impressions: Service Date/Time: Sunday, October 22, 2017 09:33 - CONCLUSION: Good position and alignment on this postoperative study.. Galo Nassar MD Chest X-Ray 10/21/17 1417 Signed Impressions: Service Date/Time: Saturday, October 21, 2017 15:35 - CONCLUSION: 1. Heart size enlarged. Minimal linear atelectasis or scarring in the lungs. Sergio Monsivais MD Wrist X-Ray 10/21/17 0000 Signed Impressions: Service Date/Time: Saturday, October 21, 2017 17:15 - CONCLUSION: Satisfactory immobilized appearance of wrist fracture. Adriel Altamirano MD Hip and Pelvis X-Ray 10/21/17 0000 Signed Impressions: Service Date/Time: Saturday, October 21, 2017 15:35 - CONCLUSION: Comminuted left intertrochanteric fracture. Nas Jeong Jr., MD Hand X-Ray 10/21/17 0000 Signed Impressions: Service Date/Time: Saturday, October 21, 2017 15:40 - CONCLUSION: 1. Nondisplaced fracture of the distal left radius. 2. Avulsion fracture of the left ulnar styloid. 3. Intact bony structures of the hand. Marco Antonio Whaley MD Objective Remarks GENERAL: This is a well-nourished, well-developed patient, in no apparent distress. CARDIOVASCULAR: Regular rate and rhythm without murmurs RESPIRATORY: Clear to auscultation. Breath sounds equal bilaterally. No wheezes GASTROINTESTINAL: Abdomen soft, non-tender, nondistended. Extremity: No cough asymmetry or edema. Left upper extremity in splint. Left lower extremity w dressing in place NEUROLOGICAL: awake and alert at this time. Normal speech. A/P Assessment and Plan Status post fall: Left subtrochanteric femur fracture status post IM nail POD 0. Management per ortho. on eliquis. Pain control per ortho. Physical therapy 50 % weightbearing left lower extremity Left distal radius fracture: Maintain splint; Nonweightbearing to left wrist. May use a platform walker for ambulation Chronic anticoagulation on Eliquis Hypoxia in ER with nausea- secondary to pain meds. stable Hypertension/Atrial fibrillation: stable on cardizem. COPD- stable History of congestive heart failure. EF of 45% by echo in 2014. low vit D levels: 13.5 . received one dose of ergocalciferol x 1 and now of 5, 000 units daily. Caution w oversedation. monitor closely while on pain meds. Discharge Planning once cleared by Dana eMek MD Oct 22, 2017 14:03
[2017-10-22] MEDS: ACETAMINOPHEN/HYDROcodone 325 MG/7.5 MG TAB PO PRN (15:13)
--- NOTE | 2017-10-22 22:54 | EKG ---
Date Performed: 10/21/2017 Time Performed: 15:15:45 PTAGE: 77 years EKG: ATRIAL FIBRILLATION ABNORMAL RHYTHM ECG PREVIOUS TRACING : 05/22/2015 15.53 Compared to previous tracing, rate slower DOCTOR: Twyla Saul Interpretating Date/Time 10/22/2017 22:53:33
[2017-10-23] VITALS (11 sets, daily range): BP systolic 94–135; BP diastolic 51–91; PULSE 53–145; RESP 14–21; TEMP 97.7–99.7; O2SAT 92–100
[2017-10-23] MEDS ORDERED: SODIUM CHLORID 0.9% 500 ML INJ 500 ML IV ONE
[2017-10-23] MEDS: DILTIAZEM-CD 180 MG CAP ER PO SCH ×2 (04:35→09:12)
[2017-10-23] MEDS ORDERED: METOPROLOL TARTRATE 25 MG TAB PO ONE (06:15)
--- NOTE | 2017-10-23 06:36 | PD.ORT.PN ---
Subjective Subjective Remarks Resting comfortably but confused Objective Vitals Vital Signs Date Time Temp Pulse Resp B/P (MAP) Pulse Ox O2 Delivery O2 Flow Rate FiO2 10/23/17 06:03 98.8 145 17 115/79 (91) 96 10/23/17 03:08 98.2 124 16 119/53 (75) 100 10/23/17 02:06 99.7 133 14 103/57 (72) 96 10/23/17 01:01 133 17 119/51 (73) 95 10/23/17 00:52 128 16 128/52 (77) 93 10/23/17 00:23 130 95 10/22/17 23:50 100.0 129 15 94/52 (66) 95 10/22/17 20:00 98.2 102 19 120/51 (74) 93 10/22/17 16:58 16 10/22/17 16:12 98.1 113 19 121/74 (90) 94 10/22/17 12:00 97.3 91 18 93/55 (68) 94 10/22/17 10:45 97 18 105/57 (73) 92 Nasal Cannula 5 10/22/17 10:30 98 18 119/59 (79) 90 Nasal Cannula 5 10/22/17 10:15 94 18 105/66 (79) 87 Nasal Cannula 5 10/22/17 10:07 98.2 92 18 94/51 (65) 83 Nasal Cannula 5 10/22/17 07:19 98.7 94 17 121/62 (81) 94 I/O 10/22/17 10/22/17 10/22/17 10/23/17 10/23/17 10/23/17 07:00 15:00 23:00 07:00 15:00 23:00 Intake Total 0 ml 800 ml 166 ml Output Total 300 ml 200 ml 200 ml Balance -300 ml 600 ml -34 ml Intake Oral 0 ml IV Total 166 ml Other 800 ml Output Urine Total 300 ml 200 ml Estimated Blood Loss 200 ml # Bowel Movements 0 Result Diagram: 10/22/17 0600 10/22/17 0600 Imaging Last 24 hours Impressions Chest X-Ray 10/21/17 1417 Signed Impressions: Service Date/Time: Saturday, October 21, 2017 15:35 - CONCLUSION: 1. Heart size enlarged. Minimal linear atelectasis or scarring in the lungs. Sergio Monsivais MD Objective Remarks Left upper extremity: No pain with shoulder motion. Sugar tong splint place. Intact sensation distally with movement of fingers. Good capillary refills Left lower extremity: Clean dry dressings intact. Distally intact sensation with good capillary refills and distal pulses Assessment & Plan Assessment and Plan Left subtrochanteric femur fracture status post IM nail POD 1 Physical therapy 50% weightbearing left lower extremity Begin daily dressing changes POD 2 unless dressings are saturated and may begin sooner. Xeroform Lovenox Incentive spirometry Minimally displaced left distal radius fracture Maintain splint Nonweightbearing to left wrist. May use a platform walker for ambulation Case management for rehabilitation placement Appointment in 2 weeks for follow-up x-rays and examination with Dr. Larsne or Alex Mancilla Jr. Oct 23, 2017 06:36
[2017-10-23 06:59] LABS: HEMATOCRIT 29.5 % (35.0-46.0); HEMOGLOBIN 9.9 GM/DL (11.6-15.3)
[2017-10-23] MEDS: LISINOPRIL 5 MG TAB PO SCH (09:00)
[2017-10-23] MEDS: ACETAMINOPHEN/HYDROcodone 325 MG/7.5 MG TAB PO PRN ×2 (09:11→13:03)
[2017-10-23] MEDS: APIXABAN 5 MG TABLET PO SCH ×2 (09:12→21:12)
[2017-10-23] MEDS: CHOLECALCIFEROL (VIT D3) 5000 UNIT CAP PO SCH (09:12)
[2017-10-23] MEDS: SODIUM CHLORIDE 0.9% FLUSH 10 ML FLUSH IV FLUSH SCH ×2 (09:14→21:21)
--- NOTE | 2017-10-23 11:54 | HHI.PR ---
Subjective Remarks Patient seen earlier this morning around 9:15 She was about to work with physical therapy. She had just received pain medication. No nausea or vomiting Overnight, her heart rate was a little bit elevated. Objective Vitals Vital Signs Date Time Temp Pulse Resp B/P (MAP) Pulse Ox O2 Delivery O2 Flow Rate FiO2 10/23/17 08:57 92 Nasal Cannula 3.00 10/23/17 08:00 98.1 107 21 105/57 (73) 96 10/23/17 06:03 98.8 145 17 115/79 (91) 96 10/23/17 03:08 98.2 124 16 119/53 (75) 100 10/23/17 02:06 99.7 133 14 103/57 (72) 96 10/23/17 01:01 133 17 119/51 (73) 95 10/23/17 00:52 128 16 128/52 (77) 93 10/23/17 00:23 130 95 10/22/17 23:50 100.0 129 15 94/52 (66) 95 10/22/17 20:00 98.2 102 19 120/51 (74) 93 10/22/17 16:58 16 10/22/17 16:12 98.1 113 19 121/74 (90) 94 10/22/17 12:00 97.3 91 18 93/55 (68) 94 I/O 10/22/17 10/22/17 10/22/17 10/23/17 10/23/17 10/23/17 06:59 14:59 22:59 06:59 14:59 22:59 Intake Total 0 ml 800 ml 166 ml Output Total 300 ml 200 ml 425 ml Balance -300 ml 600 ml -259 ml Intake Oral 0 ml IV Total 166 ml Other 800 ml Output Urine Total 300 ml 425 ml Estimated Blood Loss 200 ml # Bowel Movements 0 Result Diagram: 10/23/17 0610 10/22/17 0600 Imaging Last Impressions Hip X-Ray 10/22/17 0000 Signed Impressions: Service Date/Time: Sunday, October 22, 2017 09:33 - CONCLUSION: Good position and alignment on this postoperative study.. Galo Nassar MD Chest X-Ray 10/21/17 1417 Signed Impressions: Service Date/Time: Saturday, October 21, 2017 15:35 - CONCLUSION: 1. Heart size enlarged. Minimal linear atelectasis or scarring in the lungs. Sergio Monsivais MD Wrist X-Ray 10/21/17 0000 Signed Impressions: Service Date/Time: Saturday, October 21, 2017 17:15 - CONCLUSION: Satisfactory immobilized appearance of wrist fracture. Adriel Altamirano MD Hip and Pelvis X-Ray 10/21/17 0000 Signed Impressions: Service Date/Time: Saturday, October 21, 2017 15:35 - CONCLUSION: Comminuted left intertrochanteric fracture. Nas Jeong Jr., MD Hand X-Ray 10/21/17 0000 Signed Impressions: Service Date/Time: Saturday, October 21, 2017 15:40 - CONCLUSION: 1. Nondisplaced fracture of the distal left radius. 2. Avulsion fracture of the left ulnar styloid. 3. Intact bony structures of the hand. Marco Antonio Whaley MD Objective Remarks GENERAL: This is a well-nourished, well-developed patient, laying in bed CARDIOVASCULAR: Regular rate and rhythm without murmurs RESPIRATORY: Clear to auscultation. Breath sounds equal bilaterally. No wheezes GASTROINTESTINAL: Abdomen soft, non-tender, nondistended. Extremity: No cough asymmetry or edema. Left upper extremity in splint. Left lower extremity w dressing in place NEUROLOGICAL: awake and alert at this time. Normal speech. A/P Assessment and Plan Status post fall: Left subtrochanteric femur fracture status post IM nail POD 1. Management per ortho. on eliquis. Pain control per ortho. Physical therapy 50 % weightbearing left lower extremity Left distal radius fracture: Maintain splint; Nonweightbearing to left wrist. May use a platform walker for ambulation Chronic anticoagulation on Eliquis Hypoxia in ER with nausea- secondary to pain meds. stable Hypertension/Atrial fibrillation: stable on cardizem. COPD- stable History of congestive heart failure. EF of 45% by echo in 2014. low vit D levels: 13.5 . received one dose of ergocalciferol x 1 and now of 5, 000 units daily. Atrial fibrillation: On Eliquis, Cardizem and added low-dose metoprolol. Monitor on telemetry. Caution w oversedation. monitor closely while on pain meds. Discharge Planning once cleared by ortho Dana Valdivia MD Oct 23, 2017 11:53
[2017-10-23] MEDS: METOPROLOL TARTRATE 25 MG TAB PO SCH ×2 (14:31→22:00)
[2017-10-23] MEDS: HYDROmorphone HCL PF 2 MG/ML VIAL IV PUSH PRN (14:31)
[2017-10-23] MEDS: ONDANSETRON HCL 4 MG/2 ML VIAL IV PUSH PRN (15:05)
[2017-10-24] VITALS: BP 130/60; PULSE 88; RESP 20; TEMP 98.3; O2SAT 96
[2017-10-24] MEDS: ACETAMINOPHEN/HYDROcodone 325 MG/7.5 MG TAB PO PRN ×4 (01:34→18:58)
[2017-10-24 05:31] VITALS: BP 110/74
[2017-10-24] MEDS: METOPROLOL TARTRATE 25 MG TAB PO SCH ×2 (05:32→14:16)
--- NOTE | 2017-10-24 06:46 | PD.ORT.PN ---
Subjective Subjective Remarks POD 2 s/p IMN left intertroch s/p left wrist fx - nonop states pain in hip. has made it to chair but not walking. wrist doing well. Objective Vitals Vital Signs Date Time Temp Pulse Resp B/P (MAP) Pulse Ox O2 Delivery O2 Flow Rate FiO2 10/24/17 05:31 110/74 (86) 10/24/17 00:00 98.3 88 20 130/60 (83) 96 10/23/17 20:49 Nasal Cannula 3.00 10/23/17 18:10 97.7 78 14 94/63 (73) 93 10/23/17 16:00 98.0 53 18 94/55 (68) 92 10/23/17 16:00 113 10/23/17 12:00 98.5 90 18 107/51 (69) 94 10/23/17 12:00 114 10/23/17 08:57 92 Nasal Cannula 3.00 10/23/17 08:00 98.1 107 21 105/57 (73) 96 10/23/17 08:00 127 I/O 10/23/17 10/23/17 10/23/17 10/24/17 10/24/17 10/24/17 07:00 15:00 23:00 07:00 15:00 23:00 Intake Total 166 ml 480 ml 280 ml Output Total 425 ml 400 ml 100 ml Balance -259 ml 80 ml 180 ml Intake Oral 480 ml 280 ml IV Total 166 ml Output Urine Total 425 ml 400 ml 100 ml # Bowel Movements 0 0 Result Diagram: 10/23/17 0610 10/22/17 0600 Imaging Last 24 hours Impressions Chest X-Ray 10/21/17 1417 Signed Impressions: Service Date/Time: Saturday, October 21, 2017 15:35 - CONCLUSION: 1. Heart size enlarged. Minimal linear atelectasis or scarring in the lungs. Sergio Monsivais MD Objective Remarks Left upper extremity: No pain with shoulder motion. Sugar tong splint place. Intact sensation distally with movement of fingers. Good capillary refills Left lower extremity: Clean dry dressings intact. Distally intact sensation with good capillary refills and distal pulses Assessment & Plan Assessment and Plan 1) Left subtrochanteric femur fracture status post IM nail POD 2 Physical therapy 50% weightbearing left lower extremity Begin daily dressing changes POD 2 unless dressings are saturated and may begin sooner. Xeroform Lovenox Incentive spirometry 2) Minimally displaced left distal radius fracture Maintain splint Nonweightbearing to left wrist. May use a platform walker for ambulation Case management for rehabilitation placement ortho clear for Dc to rehab when safe and arrangements made Appointment in 2 weeks for follow-up x-rays and examination with Dr. Larsen or Edison Joiner/First Emiliano FERRER Oct 24, 2017 06:46
[2017-10-24 08:00] VITALS: BP 120/65; PULSE 97; RESP 16; TEMP 97.4; O2SAT 90
--- NOTE | 2017-10-24 08:32 | HHI.PR ---
Subjective Remarks This is a pleasant 77 y/o Female who is status post fall, with secondary distal radius fracture displaced left Hip subtrochanteric fracture, non surgical treatment of left wrist and status post Intramedullary nail Post Operative day #2, Physical therapy 50% weightbearing left lower extremity Begin daily dressing changes POD 2 unless dressings are saturated and may begin sooner. as per Orthopedic Surgery to continue Lovenox for DVT prophylaxis. okay to discharge as per Orthopedic surgery to Rehab. Nonweightbearing to left wrist. May use a platform walker for ambulation Appointment in 2 weeks for follow-up x-rays and examination with Dr. Larsen or [place] Objective Vital Signs Date Time Temp Pulse Resp B/P (MAP) Pulse Ox O2 Delivery O2 Flow Rate FiO2 10/24/17 05:31 110/74 (86) 10/24/17 00:00 98.3 88 20 130/60 (83) 96 10/23/17 20:49 Nasal Cannula 3.00 10/23/17 18:10 97.7 78 14 94/63 (73) 93 10/23/17 16:00 98.0 53 18 94/55 (68) 92 10/23/17 16:00 113 10/23/17 12:00 98.5 90 18 107/51 (69) 94 10/23/17 12:00 114 10/23/17 08:57 92 Nasal Cannula 3.00 I/O 10/23/17 10/23/17 10/23/17 10/24/17 10/24/17 10/24/17 07:00 15:00 23:00 07:00 15:00 23:00 Intake Total 166 ml 480 ml 280 ml Output Total 425 ml 400 ml 100 ml Balance -259 ml 80 ml 180 ml Intake Oral 480 ml 280 ml IV Total 166 ml Output Urine Total 425 ml 400 ml 100 ml # Bowel Movements 0 0 Result Diagram: 10/23/17 0610 10/22/17 0600 Imaging Last Impressions Hip X-Ray 10/22/17 0000 Signed Impressions: Service Date/Time: Sunday, October 22, 2017 09:33 - CONCLUSION: Good position and alignment on this postoperative study.. Galo Nassar MD Chest X-Ray 10/21/17 1417 Signed Impressions: Service Date/Time: Saturday, October 21, 2017 15:35 - CONCLUSION: 1. Heart size enlarged. Minimal linear atelectasis or scarring in the lungs. Sergio Monsivais MD Wrist X-Ray 10/21/17 0000 Signed Impressions: Service Date/Time: Saturday, October 21, 2017 17:15 - CONCLUSION: Satisfactory immobilized appearance of wrist fracture. Adriel Altamirano MD Hip and Pelvis X-Ray 10/21/17 0000 Signed Impressions: Service Date/Time: Saturday, October 21, 2017 15:35 - CONCLUSION: Comminuted left intertrochanteric fracture. Nas Jeong Jr., MD Hand X-Ray 10/21/17 0000 Signed Impressions: Service Date/Time: Saturday, October 21, 2017 15:40 - CONCLUSION: 1. Nondisplaced fracture of the distal left radius. 2. Avulsion fracture of the left ulnar styloid. 3. Intact bony structures of the hand. Marco Antonio Whaley MD Procedures Left hip intramedullary nail Other Results Laboratory Tests Test 10/21/17 14:50 10/22/17 06:00 10/23/17 06:10 Prothrombin Time 11.2 SEC Prothromb Time International Ratio 1.1 RATIO Activated Partial Thromboplast Time 25.4 SEC Blood Urea Nitrogen 16 MG/DL 18 MG/DL Creatinine 0.62 MG/DL 0.58 MG/DL Random Glucose 111 MG/DL 110 MG/DL Total Protein 7.0 GM/DL Albumin 3.2 GM/DL Calcium Level 8.7 MG/DL 8.6 MG/DL Magnesium Level 2.1 MG/DL Alkaline Phosphatase 133 U/L Aspartate Amino Transf (AST/SGOT) 18 U/L Alanine Aminotransferase (ALT/SGPT) 19 U/L Total Bilirubin 0.3 MG/DL Sodium Level 141 MEQ/L 138 MEQ/L Potassium Level 4.1 MEQ/L 4.6 MEQ/L Chloride Level 108 MEQ/L 105 MEQ/L Carbon Dioxide Level 25.9 MEQ/L 27.2 MEQ/L White Blood Count 11.4 TH/MM3 Red Blood Count 4.08 MIL/MM3 Mean Corpuscular Volume 89.2 FL Mean Corpuscular Hemoglobin 29.6 PG Mean Corpuscular Hemoglobin Concent 33.2 % Red Cell Distribution Width 13.2 % Platelet Count 169 TH/MM3 Mean Platelet Volume 8.0 FL Neutrophils (%) (Auto) 76.0 % Lymphocytes (%) (Auto) 12.8 % Monocytes (%) (Auto) 9.8 % Eosinophils (%) (Auto) 1.1 % Basophils (%) (Auto) 0.3 % Neutrophils # (Auto) 8.7 TH/MM3 Lymphocytes # (Auto) 1.5 TH/MM3 Monocytes # (Auto) 1.1 TH/MM3 Eosinophils # (Auto) 0.1 TH/MM3 Basophils # (Auto) 0.0 TH/MM3 CBC Comment DIFF FINAL Differential Comment Anion Gap 6 MEQ/L Estimat Glomerular Filtration Rate 101 ML/MIN 25-Hydroxy Vitamin D Total 13.5 ng/ML Hemoglobin 9.9 GM/DL Hematocrit 29.5 % Objective Remarks GENERAL: Morbid obese patient, in no acute distress. CARDIOVASCULAR: Regular rate and rhythm without murmurs RESPIRATORY: Clear to auscultation. Breath sounds equal bilaterally. No wheezes GASTROINTESTINAL: Abdomen soft, non-tender, nondistended. Extremity: No cough asymmetry or edema. Left upper extremity in splint. Left lower extremity w dressing in place NEUROLOGICAL: awake and alert at this time. Normal speech. Medications and IVs Current Medications Medications (Trade) Dose Ordered Sig/Roque Route Start Time Stop Time Status Last Admin (NS Flush) 2 ml UNSCH PRN IV FLUSH 10/21/17 17:00 (NS Flush) 2 ml BID IV FLUSH 10/21/17 21:00 10/23/17 09:14 (Narcan Inj) 0.4 mg UNSCH PRN IV PUSH 10/21/17 17:00 10/21/17 18:42 (Zofran Inj) 4 mg Q6HR PRN IV PUSH 10/21/17 17:45 10/23/17 15:05 (Duoneb Neb) 1 ampule Q4HR NEB PRN NEB 10/21/17 21:30 (Prinivil) 2.5 mg DAILY PO 10/22/17 09:00 (Cardizem Cd) 180 mg DAILY PO 10/22/17 09:00 10/23/17 09:12 (Pill Splitter) 1 ea UNSCH PRN OTHER 10/21/17 21:30 Lactated Ringer's 1,000 ml @ 30 mls/hr Q24H PRN IV 10/21/17 22:00 10/24/17 21:59 10/22/17 07:46 Sodium Chloride 500 ml @ 30 mls/hr [id number] PRN IV 10/21/17 22:00 10/24/17 21:59 (Betadine 5% Antisepsis Kit) 1 applic [employer]ISHER PRN EACH NARE 10/21/17 22:00 10/24/17 21:59 (Chlorhexidine 2% Cloth) 3 pack TEXTILE FINISHER PRN TOPICAL 10/21/17 22:00 10/24/17 21:59 (Benadryl) 25 mg Q6H PRN PO 10/22/17 09:45 (Kenefic 7.5-325 Mg) 1 tab Q3H PRN PO 10/22/17 09:45 10/24/17 01:34 (Vitamin D3) 5,000 units DAILY PO 10/23/17 09:00 10/23/17 09:12 (Eliquis) 5 mg BID PO 10/23/17 09:00 10/23/17 21:12 (Lopressor) 12.5 mg Q8HR PO 10/23/17 14:00 10/23/17 14:31 A/P Assessment and Plan 1. Status post fall: Left subtrochanteric femur fracture status post IM nail POD 2. Physical therapy 50% weightbearing left lower extremity to begin dressing changes today, continue Lovenox, Incentives spirometry. Orthopedic surgery cleared for discharge, follow with Doctor Larsen or NABIL in two weeks, follow with x rays. 2. Minimally displaced left distal radius fracture Maintain splint Nonweightbearing to left wrist. May use a platform walker for ambulation 3. Hypertension/Atrial Fibrillation stable on Cardizem continue Eliquis, added Metoprolol. 4. COPD stable continue Bronchodilator, Mucolytic and incentive spirometry. 5. Vitamin D deficiency received one dose of Ergocalciferol x 1 and now on 5000 units daily. 6. Morbid obesity strongly recommended diet and exercise. DVT prophylaxis with Eliquis. Discharge Planning Discharge to SNF today. Osman Angeles MD Oct 24, 2017 08:32
[2017-10-24] MEDS: SODIUM CHLORIDE 0.9% FLUSH 10 ML FLUSH IV FLUSH SCH (09:00)
[2017-10-24] MEDS: CHOLECALCIFEROL (VIT D3) 5000 UNIT CAP PO SCH (09:17)
[2017-10-24] MEDS: LISINOPRIL 5 MG TAB PO SCH (09:18)
[2017-10-24] MEDS: APIXABAN 5 MG TABLET PO SCH (09:18)
[2017-10-24] MEDS ORDERED: METO25TA3 PO (10:12)
[2017-10-24 12:00] VITALS: BP 112/68; PULSE 99; RESP 16; TEMP 97.9; O2SAT 92
[2017-10-24] MEDS ORDERED: BISACODYL 10 MG SUPP RECTAL PRN (14:00)
[2017-10-24 14:44] LABS: HEMATOCRIT 25.1 % (35.0-46.0); HEMOGLOBIN 8.7 GM/DL (11.6-15.3)
[2017-10-24 16:00] VITALS: BP 103/56; PULSE 90; RESP 18; TEMP 97.6; O2SAT 91
--- NOTE | 2017-10-25 14:29 | HHI.DS ---
Discharge Summary Admission Date Oct 21, 2017 at 16:56 Discharge Date: Oct 24, 2017 Admitting Diagnosis Femur fracture, Distal radius fracture. (1) Fall ICD Code: W19.XXXA - Unspecified fall, initial encounter Diagnosis: Principal (2) Femur fracture, left ICD Code: S72.92XA - Unspecified fracture of left femur, initial encounter for closed fracture Diagnosis: Principal Procedures Left hip intramedullary nail Brief History - From Admission History from patient, ER physician communication, and review of medical records. Patient is somewhat of a poor historian because she is quite sleepy at the time of exam due to pain medications. However, when she wakes up though, she is able to give history. She Telling me to leave Her Alone Because She Was Feeling Nauseous Just Wanted to Go to Sleep. Patient Reports That She Had a Fall She Was Walking Out Of Her House to Her Car. She denies tripping on anything. She reports she just simply lost balance and fell. She denies hitting her head. She denies syncopal episodes. Per ER report, patient was given a total of morphine 8 mg by EMS. She also received Dilaudid 2 mg total in ER prior to my arrival. She then desaturated down to 84% on room air with drowsiness and sleepiness. However on 3 L nasal cannula, patient is saturating around 90%. She reports that she is supposed to be on home oxygen. But she does not take it regularly. Because of the pain medications, she was also quite nauseous at the time of my exam. She therefore was trying to pull her oxygen off in fear of nausea and vomiting. CBC/BMP: 10/24/17 1334 10/22/17 0600 Significant Findings Laboratory Tests Test 10/23/17 06:10 10/24/17 13:34 Hemoglobin 9.9 GM/DL (11.6-15.3) 8.7 GM/DL (11.6-15.3) Hematocrit 29.5 % (35.0-46.0) 25.1 % (35.0-46.0) Imaging Last Impressions Hip X-Ray 10/22/17 0000 Signed Impressions: Service Date/Time: Sunday, October 22, 2017 09:33 - CONCLUSION: Good position and alignment on this postoperative study.. Galo Nassar MD Chest X-Ray 10/21/17 1417 Signed Impressions: Service Date/Time: Saturday, October 21, 2017 15:35 - CONCLUSION: 1. Heart size enlarged. Minimal linear atelectasis or scarring in the lungs. Sergio Monsivais MD Wrist X-Ray 10/21/17 0000 Signed Impressions: Service Date/Time: Saturday, October 21, 2017 17:15 - CONCLUSION: Satisfactory immobilized appearance of wrist fracture. Adriel Altamirano MD Hip and Pelvis X-Ray 10/21/17 0000 Signed Impressions: Service Date/Time: Saturday, October 21, 2017 15:35 - CONCLUSION: Comminuted left intertrochanteric fracture. Nas Jeong Jr., MD Hand X-Ray 10/21/17 0000 Signed Impressions: Service Date/Time: Saturday, October 21, 2017 15:40 - CONCLUSION: 1. Nondisplaced fracture of the distal left radius. 2. Avulsion fracture of the left ulnar styloid. 3. Intact bony structures of the hand. Marco Antonio Whaley MD PE at Discharge GENERAL: Morbid obese patient, in no acute distress. CARDIOVASCULAR: Regular rate and rhythm without murmurs RESPIRATORY: Clear to auscultation. Breath sounds equal bilaterally. No wheezes GASTROINTESTINAL: Abdomen soft, non-tender, nondistended. Extremity: No cough asymmetry or edema. Left upper extremity in splint. Left lower extremity w dressing in place NEUROLOGICAL: awake and alert at this time. Normal speech. Hospital Course This is a pleasant 77 y/o Female who is status post fall, with secondary distal radius fracture displaced left Hip subtrochanteric fracture, non surgical treatment of left wrist and status post Intramedullary nail Post Operative day #2, Physical therapy 50% weightbearing left lower extremity Begin daily dressing changes POD 2 unless dressings are saturated and may begin sooner. as per Orthopedic Surgery to continue Lovenox for DVT prophylaxis. okay to discharge as per Orthopedic surgery to Rehab. Nonweightbearing to left wrist. May use a platform walker for ambulation Appointment in 2 weeks for follow-up x-rays and examination with Dr. Larsen or [place] Assessment and Plan 1. Status post fall: Left subtrochanteric femur fracture status post IM nail POD 2. Physical therapy 50% weightbearing left lower extremity to begin dressing changes today, continue Lovenox, Incentives spirometry. Orthopedic surgery cleared for discharge, follow with Doctor Larsen or NABIL in two weeks, follow with x rays. 2. Minimally displaced left distal radius fracture Maintain splint Nonweightbearing to left wrist. May use a platform walker for ambulation 3. Hypertension/Atrial Fibrillation stable on Cardizem continue Eliquis, added Metoprolol. 4. COPD stable continue Bronchodilator, Mucolytic and incentive spirometry. 5. Vitamin D deficiency received one dose of Ergocalciferol x 1 and now on 5000 units daily. 6. Morbid obesity strongly recommended diet and exercise. DVT prophylaxis with Eliquis. Discharge Planning Discharge to SNF today. Pt Condition on Discharge: Good Discharge Disposition: Discharge to SNF Discharge Time: <= 30 minutes Discharge Instructions DIET: Follow Instructions for: Heart Healthy Diet Activities you can perform: See Additionl Instruction Other Activity Instructions: Follow Orthopedic surgery and Physical therapy recommendations. Osman Angeles MD Oct 25, 2017 14:29
== END 2017-10-24 19:40 | DRG 481 ==
LOC: NEPC 14:05 → NEDA 16:56 → N06B 21:19
PROVIDERS: ADMIT Internal Medicine; ATTEND Internal Medicine
PROC: 2W6 Placement, Anatomical Regions, Traction (ICD-10-PCS; 2017-10-21)
PROC: 2W3DX1Z Immobilization of Left Lower Arm using Splint (ICD-10-PCS; 2017-10-21)
PROC: 0QS706Z Reposition Left Upper Femur with Intramedullary Internal Fixation Device, Open Approach (ICD-10-PCS; principal; 2017-10-22 08:32)
DX: S72.142A Displaced intertrochanteric fracture of left femur, initial encounter for closed fracture (principal); Z68.42 Body mass index [BMI] 45.0-49.9, adult; I11.0 Hypertensive heart disease with heart failure; I50.9 Heart failure, unspecified; I48.2 Chronic atrial fibrillation; J44.9 Chronic obstructive pulmonary disease, unspecified; S52.502A Unspecified fracture of the lower end of left radius, initial encounter for closed fracture; S52.612A Displaced fracture of left ulna styloid process, initial encounter for closed fracture; W01.0XXA Fall on same level from slipping, tripping and stumbling without subsequent striking against object, initial encounter; E66.9 Obesity, unspecified; Z79.02 Long term (current) use of antithrombotics/antiplatelets; R09.02 Hypoxemia; R11.0 Nausea; E55.9 Vitamin D deficiency, unspecified; Z96.651 Presence of right artificial knee joint; Z87.891 Personal history of nicotine dependence
CPT/HCPCS: 71045; 73110; 73130; 73502; 76000; 80048; 80053; 82306; 83735; 85014; 85018; 85025; 85610; 85730; 86850; 86900; 86901; 93005; 94664; 96374; 96375; C1713; J0131; J0690; J1170; J1580; J1885; J2310; J2370; J2405; J2710; J3010; J3370; J7040; J7120; J7613

== ENCOUNTER 2017-11-02 06:20 | Emergency (ER) | payer MEDICARE, OTHER ==
[~2017-11-02 06:20] MED LIST changes: -APIX2.5T PO; +APIX5TAB PO; +CALCTAB19 PO; +DILT0.05 PO; -DILTCD180 PO; -DOCU1CAP39 PO; -DUONI NEB; -FLUT50SP NASAL; -FURO1TAB93 PO; +HYDR-3583 PO; -KCL20 PO; +LISI2.5T3 PO; -LORTA5 PO; +METO25TA3 PO; -NEBUMIS6 INH; -SENN187 PO; +VITA2000 PO; +VITA500012 PO; +WALKER/ADULT/FO1 MIS; +WHEEMIS3; -Z.0.OXYGEN INH
[2017-11-02 06:32] VITALS: BP 131/78; PULSE 120; RESP 14; TEMP 98.8; O2SAT 93
[2017-11-02] MEDS ORDERED: CYCL10TA PO (06:33)
[2017-11-02] MEDS ORDERED: FENT12DI T-DERMAL (06:34)
[2017-11-02] MEDS ORDERED: SODIUM CHLORIDE 0.9% FLUSH 10 ML FLUSH IV FLUSH PRN (06:45)
--- NOTE | 2017-11-02 06:49 | PD ---
HPI Chief Complaint: Altered Mental Status Time Seen by Provider: 06:42 Travel History International Travel<30 days: No Contact w/Intl Traveler<30days: No Traveled to known affect area: No History of Present Illness HPI 77-year-old female presents to the emergency department by EMS transport from [facility] and rehab. Patient was reportedly agitated and altered mentation according to EMS report from the nursing facility. Patient states she knows that she has been agitated because since she arrived at the rehab facility she feels like she has been ignored her need to the patient have not been addressed. Patient this morning requested to be transferred to [facility] but was told that this could not occur. Patient became very upset as a private patient that she cannot be transferred to a rehab facility she liked and was familiar with. Patient states that in the process of trying to get help she states she became agitated and took her splint off her left upper extremity into it on the floor in order to get the attention of the staff at the [facility] rehab. Patient states that she also has not had a bowel movement since being discharged from the hospital and has had poor oral intake. No report of fever chills. Patient does have prior history of atrial fibrillation for which she is prescribed Eliquis. Patient denies other concerns or complaints. Patient denies fall or recurrent injury. PFSH Past Medical History Narrative Medical Arthritis asthma atrial fibrillation CHF COPD CVA morbid obesity left wrist fracture left hip fracture status post repair hysterectomy; no tobacco use no alcohol use; nursing notes reviewed Hx Anticoagulant Therapy: Yes Arthritis: Yes Asthma: Yes Atrial Fibrillation: Yes Blood Disorders: No Anxiety: No Depression: No Heart Rhythm Problems: Yes (AFIB) Cancer: No Cardiovascular Problems: Yes (ATRIAL FIB) High Cholesterol: No Chest Pain: No Congestive Heart Failure: Yes COPD: Yes Cerebrovascular Accident: Yes (TIA) Diminished Hearing: No Endocrine: No Gastrointestinal Disorders: Yes GERD: No Glaucoma: No Genitourinary: Yes Headaches: No Hepatitis: No Hiatal Hernia: No Hypertension: Yes Immune Disorder: No Implanted Vascular Access Dvce: Yes Kidney Stones: No Musculoskeletal: Yes Neurologic: Yes Psychiatric: No Reproductive: Yes (HYSTERECTOMY) Respiratory: Yes (COPD/CHF) Migraines: No Myocardial Infarction: No Renal Failure: No Seizures: No Sleep Apnea: Yes Ulcer: No Menopausal: Yes Past Surgical History Abdominal Surgery: Yes (APPENDECTOMY) AICD: No Appendectomy: Yes Arteriovenous Shunt: No Cardiac Surgery: No Cholecystectomy: No Ear Surgery: No Endocrine Surgery: No Eye Surgery: Yes (CATARACT LEFT EYE) Genitourinary Surgery: Yes (BLADDER DROP?) Gynecologic Surgery: Yes (HYSTERECTOMY, ) Hysterectomy: Yes Insulin Pump: No Joint Replacement: Yes (RIGHT KNEE) Neurologic Surgery: No Oral Surgery: No Pacemaker: No Thoracic Surgery: No Other Surgery: Yes Social History Alcohol Use: No Tobacco Use: No Substance Use: No Allergies-Medications (Allergen,Severity, Reaction): Coded Allergies: No Known Allergies (Verified Adverse Reaction, Unknown, 11/02/17) Reported Meds & Prescriptions Reported Meds & Active Scripts Active Metoprolol Tartrate 25 Mg Tab 12.5 Mg PO Q8HR Calcium 600+D 200 (Calcium Carbonate-Vitamin D) 600-200 Mg-Unit Tab 1 Tab PO BID Vitamin D3 (Cholecalciferol) 2,000 Unit Cap 2,000 Units PO DAILY Ergocalciferol 50,000 Unit Cap 50,000 Units PO Q7D Hydrocodone-Acetaminophen 10-325 mg Tab 1 Tab PO Q4H PRN Wheelchair Elevated Leg (Device) 1 Mis Mis Ea .XX DIRECTED Walker/Adult/Folding (Device) 1 Mis Mis Ea .XX DIRECTED Reported Fentanyl Patch 72 HR (Fentanyl) 12 Mcg/Hr Patch 1 Patch T-DERMAL Q72H Remove old patch when new one placed. Flexeril (Cyclobenzaprine HCl) 10 Mg Tab 10 Mg PO TID Diltiazem ER 24 HR 180 Mg Yomaira Unknown Dose PO DAILY Lisinopril 2.5 Mg Tab 2.5 Mg PO DAILY Eliquis (Apixaban) 5 Mg Tab 5 Mg PO BID Review of Systems Except as stated in HPI: all other systems reviewed are Neg Physical Exam Narrative GENERAL: Well-developed well-nourished female; no respiratory distress; GCS 14 to 15 SKIN: Warm and dry. HEAD: Normocephalic. EYES: No scleral icterus. No injection or drainage. NECK: Supple, trachea midline. No JVD or lymphadenopathy. CARDIOVASCULAR: Regular rate and rhythm without murmurs, gallops, or rubs. RESPIRATORY: Breath sounds equal bilaterally. No accessory muscle use. GASTROINTESTINAL: Abdomen soft, non-tender, nondistended. MUSCULOSKELETAL: No cyanosis, or edema. Left wrist with swelling distally extremities neurovascular tendon intact radial and ulnar pulses 2+ to palpation capillary refill is brisk less than 2 seconds attention left lower extremity dressings are still in place with minimal drainage/dried blood distally extremities neurovascular tendon intact. BACK: Nontender without obvious deformity. No CVA tenderness. Data Data Last Documented VS Vital Signs Date Time Temp Pulse Resp B/P (MAP) Pulse Ox O2 Delivery O2 Flow Rate FiO2 11/02/17 06:32 98.8 120 14 131/78 (95) 93 Orders Orders Electrocardiogram (11/02/17 06:42) Basic Metabolic Panel (Bmp) (11/02/17 06:42) Complete Blood Count With Diff (11/02/17 06:42) Prothrombin Time / Inr (Pt) (11/02/17 06:42) Act Partial Throm Time (Ptt) (11/02/17 06:42) Troponin I (11/02/17 06:42) Urinalysis - C+S If Indicated (11/02/17 06:42) Ct Brain W/O Iv Contrast(Rout) (11/02/17 06:42) Blood Glucose (11/02/17 06:42) Ecg Monitoring (11/02/17 06:42) Iv Access Insert/Monitor (11/02/17 06:42) Oximetry (11/02/17 06:42) Sodium Chloride 0.9% Flush (Ns Flush) (11/02/17 06:45) Wrist, Limited (Ap&Lat) (11/02/17 ) Splint Or Brace Apply/Monitor (11/02/17 06:42) B-Type Natriuretic Peptide (11/02/17 06:51) Ondansetron Inj (Zofran Inj) (11/02/17 07:00) Morphine Inj (Morphine Inj) (11/02/17 07:00) MDM Medical Decision Making Medical Screen Exam Complete: Yes Emergency Medical Condition: Yes Medical Record Reviewed: Yes Differential Diagnosis Atrial fibrillation with RVR, anemia, Eliquis related bleed, left wrist fracture left hip fracture also consider PE Narrative Course IV access obtained specimens collected and sent for resulting imaging studies ordered @ 0700 care signed over to Dennise Greenfield MD Nov 02, 2017 06:49
[2017-11-02] MEDS ORDERED: MORPHINE SULFATE 2 MG/ML SYRINGE IV PUSH ONE (07:00)
[2017-11-02] MEDS ORDERED: ONDANSETRON HCL 4 MG/2 ML VIAL IV PUSH ONE (07:00)
--- NOTE | 2017-11-02 07:25 | RADRPT ---
EXAM DATE/TIME: 11/02/2017 06:48 [facility] COMPARISON: No previous studies available for comparison. INDICATIONS : Fracture to left wrist 2 weeks ago, patient has pain left wrist , has removed her splint from wrist MEDICAL HISTORY : None. SURGICAL HISTORY : None. ENCOUNTER: Initial ACUITY: 2 weeks PAIN SCORE: 6/10 LOCATION: Left wrist FINDINGS: 2 views of the left wrist demonstrate a comminuted nondisplaced fracture of the distal radius with sl ight dorsal angulation. There is also a minimally displaced ulnar styloid fracture. The remainder of the osseous structures appear intact. The bones are mildly osteopenic. Soft tissue edema adjacent to the fracture sites. CONCLUSION: Comminuted nondisplaced slightly dorsally angulated fracture of the distal radius. This extends into the radiocarpal joint. There is a minimally displaced ulnar styloid fracture presen t as well. Sarina Villa MD on November 02, 2017 at 7:21 Board Certified Radiologist. This report was verified electronically.
[2017-11-02 07:38] LABS: BASOPHIL % 0.5 % (0.0-2.0); EOSINOPHIL # 0.2 TH/MM3 (0-0.4); EOSINOPHIL % 2.3 % (0.0-4.0); HEMATOCRIT 29.9 % (35.0-46.0); HEMOGLOBIN 10.2 GM/DL (11.6-15.3); LYMPH % 11.1 % (9.0-44.0); MEAN CELL VOLUME 88.9 FL (80.0-100.0); MEAN CORPUSCULAR HEMOGLOBIN 30.2 PG (27.0-34.0); MEAN PLATELET VOLUME 7.4 FL (7.0-11.0); MONO % 6.7 % (0.0-8.0); MONOCYTE # 0.6 TH/MM3 (0-0.9); NEUT % 79.4 % (16.0-70.0); PLATELET COUNT 327 TH/MM3 (150-450); RED BLOOD COUNT 3.37 MIL/MM3 (4.00-5.30); RED CELL DISTRIBUTION WIDTH 13.7 % (11.6-17.2); WHITE BLOOD COUNT 8.8 TH/MM3 (4.0-11.0)
--- NOTE | 2017-11-02 07:42 | RADRPT ---
EXAM DATE/TIME: 11/02/2017 07:23 [facility] COMPARISON: No previous studies available for comparison. INDICATIONS : Altered mental status. RADIATION DOSE: 55.63 CTDIvol (mGy) MEDICAL HISTORY : Chronic obstructive pulmonary disease. Cerebrovascular disease. Congestive heart failure. SURGICAL HISTORY : Appendectomy. Hysterectomy. ENCOUNTER: Initial ACUITY: 1 day PAIN SCALE: 0/10 LOCATION: cranial TECHNIQUE: Multiple contiguous axial images were obtained of the head. Using automated exposure control and adj ustment of the mA and/or kV according to patient size, radiation dose was kept as low as reasonably a chievable to obtain optimal diagnostic quality images. DICOM format image data is available electro nically for review and comparison. FINDINGS: CEREBRUM: The ventricles are normal for age. No evidence of midline shift, mass lesion, hemorrhage or acute in farction. No extra-axial fluid collections are seen. POSTERIOR FOSSA: The cerebellum and brainstem are intact. The 4th ventricle is midline. The cerebellopontine angle i s unremarkable. EXTRACRANIAL: The visualized portion of the orbits is intact. SKULL: The calvaria is intact. No evidence of skull fracture. CONCLUSION: No acute disease. Sarina Villa MD on November 02, 2017 at 7:38 Board Certified Radiologist. This report was verified electronically.
[2017-11-02] MEDS ORDERED: DILTIAZEM HCL 25 MG/5 ML VIAL IV ONE ×2 (07:45→09:15)
[2017-11-02] MEDS ORDERED: DILTIAZEM-CD 180 MG CAP ER PO ONE (07:45)
[2017-11-02 07:46] LABS: CHLORIDE 98 MEQ/L (98-107); SODIUM (NA) 135 MEQ/L (136-145)
[2017-11-02 07:47] VITALS: BP 102/87; PULSE 117; RESP 16; O2SAT 90
[2017-11-02 07:50] LABS: CALCIUM 8.9 MG/DL (8.5-10.1)
[2017-11-02 07:51] LABS: BICARBONATE 29.8 MEQ/L (21.0-32.0); BLOOD UREA NITROGEN 10 MG/DL (7-18); GLUCOSE,RANDOM 104 MG/DL (74-106); INTERNATIONAL NORMALIZED RATIO 1.2 RATIO; PROTHROMBIN TIME - PATIENT 11.7 SEC (9.8-11.6)
[2017-11-02 07:54] LABS: GLOMERULAR FILTRATION RATE 120 ML/MIN (>89)
--- NOTE | 2017-11-02 07:58 | PD ---
Physical Exam Date Seen by Provider: Nov 02, 2017 Data Data Last Documented VS Vital Signs Date Time Temp Pulse Resp B/P (MAP) Pulse Ox O2 Delivery O2 Flow Rate FiO2 11/02/17 07:47 117 16 102/87 (92) 90 Nasal Cannula 3.00 11/02/17 06:32 98.8 Orders Orders Electrocardiogram (11/02/17 06:42) Basic Metabolic Panel (Bmp) (11/02/17 06:42) Complete Blood Count With Diff (11/02/17 06:42) Prothrombin Time / Inr (Pt) (11/02/17 06:42) Act Partial Throm Time (Ptt) (11/02/17 06:42) Troponin I (11/02/17 06:42) Urinalysis - C+S If Indicated (11/02/17 06:42) Ct Brain W/O Iv Contrast(Rout) (11/02/17 06:42) Blood Glucose (11/02/17 06:42) Ecg Monitoring (11/02/17 06:42) Iv Access Insert/Monitor (11/02/17 06:42) Oximetry (11/02/17 06:42) Sodium Chloride 0.9% Flush (Ns Flush) (11/02/17 06:45) Wrist, Limited (Ap&Lat) (11/02/17 ) Splint Or Brace Apply/Monitor (11/02/17 06:42) B-Type Natriuretic Peptide (11/02/17 06:51) Ondansetron Inj (Zofran Inj) (11/02/17 07:00) Morphine Inj (Morphine Inj) (11/02/17 07:00) Diltiazem Inj (Cardizem Inj) (11/02/17 07:45) Diltiazem Cd (Cardizem Cd) (11/02/17 07:45) Chest, Single Ap (11/02/17 07:48) Cath For Specimen (11/02/17 07:57) Cockup Hand Splint (11/02/17 ) Labs Laboratory Tests Test 11/02/17 07:15 11/02/17 08:25 White Blood Count 8.8 TH/MM3 Red Blood Count 3.37 MIL/MM3 Hemoglobin 10.2 GM/DL Hematocrit 29.9 % Mean Corpuscular Volume 88.9 FL Mean Corpuscular Hemoglobin 30.2 PG Mean Corpuscular Hemoglobin Concent 34.0 % Red Cell Distribution Width 13.7 % Platelet Count 327 TH/MM3 Mean Platelet Volume 7.4 FL Neutrophils (%) (Auto) 79.4 % Lymphocytes (%) (Auto) 11.1 % Monocytes (%) (Auto) 6.7 % Eosinophils (%) (Auto) 2.3 % Basophils (%) (Auto) 0.5 % Neutrophils # (Auto) 7.0 TH/MM3 Lymphocytes # (Auto) 1.0 TH/MM3 Monocytes # (Auto) 0.6 TH/MM3 Eosinophils # (Auto) 0.2 TH/MM3 Basophils # (Auto) 0.0 TH/MM3 CBC Comment DIFF FINAL Differential Comment Prothrombin Time 11.7 SEC Prothromb Time International Ratio 1.2 RATIO Activated Partial Thromboplast Time 30.0 SEC Blood Urea Nitrogen 10 MG/DL Creatinine 0.50 MG/DL Random Glucose 104 MG/DL Calcium Level 8.9 MG/DL Sodium Level 135 MEQ/L Potassium Level 4.1 MEQ/L Chloride Level 98 MEQ/L Carbon Dioxide Level 29.8 MEQ/L Anion Gap 7 MEQ/L Estimat Glomerular Filtration Rate 120 ML/MIN Troponin I LESS THAN 0.02 NG/ML B-Type Natriuretic Peptide 277 PG/ML Urine Collection Type CATH Urine Color YELLOW Urine Turbidity CLOUDY Urine pH 8.0 Urine Specific [place] 1.015 Urine Protein NEG mg/dL Urine Glucose (UA) NEG mg/dL Urine Ketones 15 mg/dL Urine Occult Blood NEG Urine Nitrite NEG Urine Bilirubin NEG Urine Urobilinogen 4.0 MG/DL Urine Leukocyte Esterase NEG Urine WBC 0-2 /hpf Urine Squamous Epithelial Cells 6-8 /hpf Urine Amorphous Sediment MOD Microscopic Urinalysis Comment CATH-CULT NOT IND Urine Collection Time 08:25 [facility] Medical Record Reviewed: Yes Supervised Visit with AYAN: No Differential Diagnosis Vital Signs Date Time Temp Pulse Resp B/P (MAP) Pulse Ox O2 Delivery O2 Flow Rate FiO2 11/02/17 07:47 117 16 102/87 (92) 90 Nasal Cannula 3.00 11/02/17 07:00 16 11/02/17 06:32 98.8 120 14 131/78 (95) 93 CBC & BMP Diagram 11/02/17 07:15 Calcium Level 8.9 Last Impressions Chest X-Ray 11/02/17 0748 Signed Impressions: Service Date/Time: Thursday, November 02, 2017 07:59 - CONCLUSION: Moderate cardiomegaly with radiographic findings consistent with congestive heart failure versus volume overload. Left basilar atelectasis versus airspace consolidation.. Sarina Villa MD Head CT 11/02/1742 Signed Impressions: Service Date/Time: Thursday, November 02, 2017 07:23 - CONCLUSION: No acute disease. Sarina Villa MD Wrist X-Ray 11/02/17 0000 Signed Impressions: Service Date/Time: Thursday, November 02, 2017 06:48 - CONCLUSION: Comminuted nondisplaced slightly dorsally angulated fracture of the distal radius. This extends into the radiocarpal joint. There is a minimally displaced ulnar styloid fracture present as well. Sarina Villa MD Narrative Course Patient sent out to me by Dr. Bryan at change of shift. Patient pending lab work as well as to spell the patient. Please see previous providers chart for full HPI Patient is a 77-year-old female who presents the emergency room from [place] [facility]. As per patient, she was upset at her care at [facility] and requested to be transferred to another nursing facility. Patient thinks that she is not being cared for properly, reports that she is not getting attention she needs for her rehab. Patient reports that because they would not transfer her to another nursing rehab facility, she became angry and took off her splint to her left upper extremity to get attention. Patient is alert and oriented 3, patient reports that she does have history of atrial fibrillation which she currently takes Eliquis as well as diltiazem for. Patient did not take her morning medications today. On evaluation of patient, patient's heart rate in the 120s, EKG is consistent with A. fib with RVR at 118bpm. An IV dose of Cardizem was ordered for patient to bring her heart rate down, it appears the patient's HR is now 100. Her oral dose of cardizem was ordered for her. Last Impressions Head CT 11/02/17641 Signed Impressions: Service Date/Time: Thursday, November 02, 2017 07:23 - CONCLUSION: No acute disease. Sarina Villa MD Wrist X-Ray 11/02/17 0000 Signed Impressions: Service Date/Time: Thursday, November 02, 2017 06:48 - CONCLUSION: Comminuted nondisplaced slightly dorsally angulated fracture of the distal radius. This extends into the radiocarpal joint. There is a minimally displaced ulnar styloid fracture present as well. Sarina Villa MD CT the head shows no acute disease, x-ray of the wrist shows a comminuted displaced fracture of the distal radius -a splint was reordered to her left wrist. Patient was reevaluated, patient now reports that she is seeing dogs in her room. It appears that patient is currently hallucinating. Lab work as well as UA pending. Straight catheterization ordered to obtain UA sample Laboratory Tests Test 11/02/17 07:15 11/02/17 08:25 White Blood Count 8.8 TH/MM3 (4.0-11.0) Red Blood Count 3.37 MIL/MM3 (4.00-5.30) Hemoglobin 10.2 GM/DL (11.6-15.3) Hematocrit 29.9 % (35.0-46.0) Mean Corpuscular Volume 88.9 FL (80.0-100.0) Mean Corpuscular Hemoglobin 30.2 PG (27.0-34.0) Mean Corpuscular Hemoglobin Concent 34.0 % (32.0-36.0) Red Cell Distribution Width 13.7 % (11.6-17.2) Platelet Count 327 TH/MM3 (150-450) Mean Platelet Volume 7.4 FL (7.0-11.0) Neutrophils (%) (Auto) 79.4 % (16.0-70.0) Lymphocytes (%) (Auto) 11.1 % (9.0-44.0) Monocytes (%) (Auto) 6.7 % (0.0-8.0) Eosinophils (%) (Auto) 2.3 % (0.0-4.0) Basophils (%) (Auto) 0.5 % (0.0-2.0) Neutrophils # (Auto) 7.0 TH/MM3 (1.8-7.7) Lymphocytes # (Auto) 1.0 TH/MM3 (1.0-4.8) Monocytes # (Auto) 0.6 TH/MM3 (0-0.9) Eosinophils # (Auto) 0.2 TH/MM3 (0-0.4) Basophils # (Auto) 0.0 TH/MM3 (0-0.2) CBC Comment DIFF FINAL Differential Comment Prothrombin Time 11.7 SEC (9.8-11.6) Prothromb Time International Ratio 1.2 RATIO Activated Partial Thromboplast Time 30.0 SEC (24.3-30.1) Blood Urea Nitrogen 10 MG/DL (7-18) Creatinine 0.50 MG/DL (0.50-1.00) Random Glucose 104 MG/DL (74-106) Calcium Level 8.9 MG/DL (8.5-10.1) Sodium Level 135 MEQ/L (136-145) Potassium Level 4.1 MEQ/L (3.5-5.1) Chloride Level 98 MEQ/L (98-107) Carbon Dioxide Level 29.8 MEQ/L (21.0-32.0) Anion Gap 7 MEQ/L (5-15) Estimat Glomerular Filtration Rate 120 ML/MIN (>89) Troponin I LESS THAN 0.02 NG/ML B-Type Natriuretic Peptide 277 PG/ML (0-100) Urine Collection Type CATH Urine Color YELLOW (YELLW/STRAW) Urine Turbidity CLOUDY (CLEAR) Urine pH 8.0 (5.0-8.5) Urine Specific [place] 1.015 (1.002-1.035) Urine Protein NEG mg/dL (NEG-TRACE) Urine Glucose (UA) NEG mg/dL (NEG) Urine Ketones 15 mg/dL (NEG) Urine Occult Blood NEG (NEG) Urine Nitrite NEG (NEG) Urine Bilirubin NEG (NEG) Urine Urobilinogen 4.0 MG/DL (LESS THAN Urine Leukocyte Esterase NEG (NEG) Urine WBC 0-2 /hpf (0-5) Urine Squamous Epithelial Cells 6-8 /hpf (0-5) Urine Amorphous Sediment MOD Microscopic Urinalysis Comment CATH-CULT NOT IND Urine Collection Time 08:25 Lab work including UA benign, patient does have history of atrial fibrillation, heart rate currently 102. Patient is alert and oriented 3, patient [facility] was called [facility]. Patient is safe to be discharged at this time as she currently suffers no medical emergencies. Diagnosis Primary Impression: Atrial fibrillation Qualified Codes: I48.91 - Unspecified atrial fibrillation Additional Impressions: Anemia Qualified Codes: D64.9 - Anemia, unspecified Aggressive behavior, adult Patient Instructions: General Instructions Additional Instruction: Please follow up with your primary care doctor in 2-3 days Return to the ER if symptoms worsen or progress Return to the ER as needed Disposition: 01 DISCHARGE HOME Condition: Stable Kristy Castillo DO Nov 02, 2017 07:58
[2017-11-02 07:59] LABS: TROPONIN I LESS THAN 0.02 NG/ML (0.02-0.05)
--- NOTE | 2017-11-02 08:21 | RADRPT ---
EXAM DATE/TIME: 11/02/2017 07:59 [place] COMPARISON: CHEST SINGLE AP, October 21, 2017, 15:35. INDICATIONS : Palpitations MEDICAL HISTORY : None. SURGICAL HISTORY : None. ENCOUNTER: Initial ACUITY: 1 day PAIN SCORE: 0/10 LOCATION: Bilateral chest FINDINGS: Single view of the chest demonstrates moderate cardiomegaly. There is tortuosity the thoracic aorta. Cephalization of pulmonary vasculature. The left hemidiaphragm is obscured secondary to left basilar atelectasis versus airspace consolidation. The remainder of the lungs are clear. Osseous structures d emonstrate degenerative change.. CONCLUSION: Moderate cardiomegaly with radiographic findings consistent with congestive heart failure versus volu me overload. Left basilar atelectasis versus airspace consolidation.. Sarina Villa MD on November 02, 2017 at 8:17 Board Certified Radiologist. This report was verified electronically.
[2017-11-02 08:33] LABS: BLOOD, URINE NEG (NEG); GLUCOSE,URINE NEG (NEG); KETONE, URINE 15 mg/dL (NEG); NITRITE,URINE NEG (NEG); URINE COLOR YELLOW (YELLW/STRAW); URINE LEUKOCYTE ESTERASE NEG (NEG)
[2017-11-02 08:44] LABS: BILIRUBIN, URINE NEG (NEG)
[2017-11-02 08:46] LABS: WBC, URINE 0-2 /hpf (0-5)
[2017-11-02 08:47] LABS: AMORPHOUS SEDIMENT, URINE MOD
[2017-11-02] MEDS ORDERED: ACETAMINOPHEN 325 MG TAB PO ONE (11:30)
[2017-11-02 13:00] VITALS: BP 136/75
--- NOTE | 2017-11-02 20:09 | EKG ---
Date Performed: 11/02/2017 Time Performed: 07:35:06 PTAGE: 77 years EKG: ATRIAL FIBRILLATION WITH RAPID VENTRICULAR RESPONSE NONSPECIFIC ST & T-WAVE ABNORMALITY \Co mpared to previous tracing, HR is faster, otherwise no significant change ABNORMAL RHYTHM ECG PREVIOUS TRACING : 10/21/2017 15.15 DOCTOR: David Jimenez Interpretating Date/Time 11/02/2017 20:07:52
== END 2017-11-02 13:05 | disposition home or self-care (01) ==
LOC: PHED 06:20
DX: S52.502A Unspecified fracture of the lower end of left radius, initial encounter for closed fracture (principal); S52.612A Displaced fracture of left ulna styloid process, initial encounter for closed fracture; I48.91 Unspecified atrial fibrillation; D64.9 Anemia, unspecified; I51.7 Cardiomegaly; R94.31 Abnormal electrocardiogram [ECG] [EKG]; I11.0 Hypertensive heart disease with heart failure; I50.9 Heart failure, unspecified; X58.XXXA Exposure to other specified factors, initial encounter
CPT/HCPCS: 70450; 71045; 73100; 80048; 81001; 83880; 84484; 85025; 85610; 85730; 93005; 96374; 96376; 99284; L3908; P9612